=== PATIENT | male | born 1980 | race Caucasian/White ===

== ENCOUNTER 2018-04-02 10:50 | Emergency (ER) | payer SELFPAY ==
[2018-04-02] MEDS ORDERED: NA CHLORIDE 0.9% 1,000 ML ONE (11:35)
[2018-04-02 11:53] LABS: Absolute Lymphocytes (CBC) 2.7 K/uL (0.7-4.9); Absolute Monocytes 0.8 K/uL (0.1-1.3); Absolute Neutrophil 9.3 K/uL (1.8-8.0); Basophils % 0.4 % (0-1.3); Eosinophils % 0.3 % (0-4.4); Hematocrit 50.3 % (39.6-49.0); Lymphocytes % 20.8 % (15.3-44.8); MCH 32.2 pg (27.0-35.0); MCV 94.2 fL (80-100); MPV 9.9 fL (7.6-11.3); Monocytes % 6.1 % (3.3-12.3); RBC Red Blood Cell Count 5.34 M/uL (4.33-5.43)
[2018-04-02 11:56] LABS: Protime INR 1.05
[2018-04-02 12:42] LABS: ALT/SGPT 103 U/L (12-78); AST/SGOT 86 U/L (15-37); Albumin 4.2 g/dL (3.4-5.0); Alkaline Phosphatase 69 U/L (45-117); BUN Blood Urea Nitrogen 13 mg/dL (7-18); Bicarbonate 26 mmol/L (21-32); Bilirubin Direct 0.4 mg/dL (0-0.2); Bilirubin Total 1.1 mg/dL (0.2-1.0); Glucose Level 93 mg/dL (74-106); Potassium 3.8 mmol/L (3.5-5.1); Protein, Total 7.8 g/dL (6.4-8.2); Sodium Level 141 mmol/L (136-145)
[2018-04-02 12:47] LABS: Alcohol Serum/Plasma < 3 mg/dL (<3)
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
--- NOTE | 2018-04-02 14:14 | EDPHYS ---
Physician Documentation [facility] Name: Eliseo Green Age: 37 yrs Sex: Male : 1980 Arrival Date: 04/02/2018 Time: 10:55 Bed 18 Private MD: None, None ED Physician Noe Issa HPI: 04/02 14:04 This 37 yrs old Male presents to ER via Ambulatory with complaints of malachi Suicidal Ideation. 14:04 The patient presents to the emergency department with psychosis, has experienced visual malachi hallucinations, has delusions. Onset: The symptoms/episode began/occurred 2 week(s) ago. Past psychiatric history: Prior diagnosis: schizophrenia, Psychiatric medications include: none. Associated signs and symptoms: The patient has no apparent associated signs or symptoms. Severity of symptoms: At their worst the symptoms were mild moderate in the emergency department the symptoms are unchanged. The patient has experienced similar episodes in the past, several times. Historical: - Allergies: 11:23 No Known Allergies; ph - Home Meds: 11:23 None [Active]; ph - PMHx: 11:23 Schizophrenia; ph - PSHx: 11:23 None; ph - Immunization history:: Adult Immunizations unknown. - Social history:: Smoking status: Patient/guardian denies using tobacco, Patient uses alcohol, street drugs, Methamphetamine (Meth). - Ebola Screening: : No symptoms or risks identified at this time. ROS: 14:05 Constitutional: Negative for fever, chills, and weight loss, Eyes: Negative for injury, malachi pain, redness, and discharge, ENT: Negative for injury, pain, and discharge, Neck: Negative for injury, pain, and swelling, Cardiovascular: Negative for chest pain, palpitations, and edema, Respiratory: Negative for shortness of breath, cough, wheezing, and pleuritic chest pain, Abdomen/GI: Negative for abdominal pain, nausea, vomiting, diarrhea, and constipation, Back: Negative for injury and pain, : Negative for injury, bleeding, discharge, and swelling, MS/Extremity: Negative for injury and deformity, Skin: Negative for injury, rash, and discoloration, Neuro: Negative for headache, weakness, numbness, tingling, and seizure, Allergy/Immunology: Negative for hives, rash, and allergies, Endocrine: Negative for neck swelling, polydipsia, polyuria, polyphagia, and marked weight changes, Hematologic/Lymphatic: Negative for swollen nodes, abnormal bleeding, and unusual bruising. 14:05 Psych: Positive for depression, suicidal ideation. Exam: 14:05 Constitutional: This is a well developed, well nourished patient who is awake, alert, malachi and in no acute distress. Head/Face: Normocephalic, atraumatic. Eyes: Pupils equal round and reactive to light, extra-ocular motions intact. Lids and lashes normal. Conjunctiva and sclera are non-icteric and not injected. Cornea within normal limits. Periorbital areas with no swelling, redness, or edema. ENT: Nares patent. No nasal discharge, no septal abnormalities noted. Tympanic membranes are normal and external auditory canals are clear. Oropharynx with no redness, swelling, or masses, exudates, or evidence of obstruction, uvula midline. Mucous membranes moist. Neck: Trachea midline, no thyromegaly or masses palpated, and no cervical lymphadenopathy. Supple, full range of motion without nuchal rigidity, or vertebral point tenderness. No Meningismus. Chest/axilla: Normal chest wall appearance and motion. Nontender with no deformity. No lesions are appreciated. Cardiovascular: Regular rate and rhythm with a normal S1 and S2. No gallops, murmurs, or rubs. Normal PMI, no JVD. No pulse deficits. Respiratory: Lungs have equal breath sounds bilaterally, clear to auscultation and percussion. No rales, rhonchi or wheezes noted. No increased work of breathing, no retractions or nasal flaring. Abdomen/GI: Soft, non-tender, with normal bowel sounds. No distension or tympany. No guarding or rebound. No evidence of tenderness throughout. Back: No spinal tenderness. No costovertebral tenderness. Full range of motion. Skin: Warm, dry with normal turgor. Normal color with no rashes, no lesions, and no evidence of cellulitis. MS/ Extremity: Pulses equal, no cyanosis. Neurovascular intact. Full, normal range of motion. Neuro: Awake and alert, GCS 15, oriented to person, place, time, and situation. Cranial nerves II-XII grossly intact. Motor strength 5/5 in all extremities. Sensory grossly intact. Cerebellar exam normal. Normal gait. 14:05 Psych: Behavior/mood is depressed, Affect is flat, Oriented to person, place, time, Patient has no thoughts/intents to harm self or others. Judgement / Insight is normal. Delusions/hallucinations Vital Signs: 11:00 BP 136 / 99 LA Sitting (auto/reg); Pulse 110; Resp 19 S; Pulse Ox 96% on R/A; jp3 13:00 BP 134 / 87 LA Sitting (auto/reg); Pulse 66; Resp 19 S; Pulse Ox 100% on R/A; jp3 17:00 BP 125 / 93 LA Supine (auto/reg); Pulse 60; Resp 19 S; Pulse Ox 100% on R/A; jp3 20:37 BP 94 / 60; Pulse 86; Resp 16; Temp 97.9(O); Pulse Ox 98% on R/A; Pain 0/10; lp1 22:40 BP 115 / 88 LA Sitting (auto/reg); Pulse 105; Resp 19 S; Pulse Ox 96% on R/A; Pain 0/10;jp3 04/03 00:36 BP 111 / 74; Pulse 73; Resp 16; Pulse Ox 98% on R/A; lp1 04:47 BP 113 / 78; Pulse 76; Resp 17; Pulse Ox 96% on R/A; mw2 07:02 BP 110 / 68; Pulse 89; Resp 14; Temp 98.2; Pulse Ox 98% on R/A; mh5 08:28 BP 98 / 64; Pulse 70; Resp 15; Temp 98.0(O); Pulse Ox 97% on R/A; mh5 12:30 BP 106 / 78; Pulse 68; Resp 16; Temp 97.8(O); Pulse Ox 96% on R/A; mh5 16:21 BP 107 / 68; Pulse 70; Resp 16; Temp 97.8(O); Pulse Ox 97% on R/A; mh5 MDM: 04/02 11:07 Patient medically screened. [facility] 14:05 Data reviewed: vital signs, nurses notes, lab test result(s), EKG. [facility] 04/02 11:12 Order name: Acetaminophen; Complete Time: 14:03 [facility] 04/02 11:12 Order name: Basic Metabolic Panel; Complete Time: 14:03 [facility] 04/02 11:12 Order name: CBC with Diff; Complete Time: 14:03 [facility] 04/02 11:12 Order name: ETOH Level; Complete Time: 14:03 [facility] 04/02 11:12 Order name: Hepatic Function; Complete Time: 14:03 [facility] 04/02 11:12 Order name: PT-INR; Complete Time: 14:03 [facility] 04/02 11:12 Order name: Ptt, Activated; Complete Time: 14:03 [facility] 04/02 11:12 Order name: Salicylate; Complete Time: 14:03 [facility] 04/02 11:12 Order name: Urine Drug Screen; Complete Time: 15:56 [facility] 04/02 11:12 Order name: TSH; Complete Time: 14:03 [facility] 04/02 16:01 Order name: Urine Dipstick--Ancillary (enter results) bd 04/02 16:02 Order name: Urine Dipstick-Ancillary EDMS 04/02 11:12 Order name: EKG; Complete Time: 11:12 [facility] 04/02 11:12 Order name: EKG - Nurse/Tech; Complete Time: 11:39 [facility] 04/02 11:12 Order name: IV Saline Lock; Complete Time: 11:39 [facility] 04/02 11:12 Order name: Labs collected and sent; Complete Time: 11:39 [facility] 04/02 11:12 Order name: Urine Dipstick-Ancillary (obtain specimen); Complete Time: 11:40 [facility] 04/03 06:57 Order name: Diet Finger Food; Complete Time: 06:58 04/03 07:07 Order name: Diet Regular; Complete Time: 07:07 [facility] 04/03 10:17 Order name: Diet Regular; Complete Time: 10:17 [facility] 04/03 15:31 Order name: Diet Regular; Complete Time: 15:31 [facility] 04/03 17:24 Order name: Diet Regular; Complete Time: 17:24 [facility] Administered Medications: 11:39 Drug: NS 0.9% 1000 ml Route: IV; Rate: 1 bolus; Site: right antecubital; 04/03 07:00 Follow up: IV Status: Completed infusion; IV Intake: 1000ml ; completed prior to [facility] arrival 04/02 14:18 Drug: Ativan 1 mg Route: IVP; Site: right forearm; rb1 04/03 07:00 Follow up: Response: No adverse reaction 02:58 Drug: Valium 5 mg Route: PO; lp1 04:00 Follow up: Response: Marked relief of symptoms lp1 14:00 Drug: Ativan 2 mg Route: IM; Site: left deltoid; 15:00 Follow up: Response: No adverse reaction; Marked relief of symptoms 14:00 Drug: Geodon 20 mg Route: IM; Site: right gluteus; 15:00 Follow up: Response: No adverse reaction; Marked relief of symptoms Disposition: 04/02/18 14:13 Transfer ordered to Psych Facility. Diagnosis are Schizophrenia, Suicidal ideations. - Reason for transfer: Higher level of care. - Accepting physician is to psych. - Condition is Stable. - Problem is new. - Symptoms are unchanged. Signatures: Dispatcher [employer] EDJohanny Gomez RN RN Noe Issa MD MD cha Martinez, Eric em1 Gracy Ashford RN RN lp1 Ofe Jacobo RN RN Candy Echols RN RN [facility] Ely Maharaj RN RN Corrections: (The following items were deleted from the chart) 18:57 04/02 14:13 04/02/2018 14:13 Transfer ordered to Psych Facility. Diagnosis is em1 Schizophrenia; Suicidal ideations. Reason for transfer: Higher level of care. Accepting physician is to psych. Condition is Stable. Problem is new. Symptoms are unchanged. malachi
[2018-04-02] MEDS ORDERED: LORazepam 2 MG/ML VIAL ONE (14:19)
[2018-04-02 14:38] LABS: Barbiturates NEGATIVE (NEGATIVE); Benzodiazepines NEGATIVE (NEGATIVE); Cocaine NEGATIVE (NEGATIVE); METHAMPHETAM POSITIVE (NEGATIVE); Methadone NEGATIVE (NEGATIVE); Opiates NEGATIVE (NEGATIVE); Phencyclidine NEGATIVE (NEGATIVE); THC Cannibis NEGATIVE (NEGATIVE)
[2018-04-02 16:14] LABS: Urine Blood NEGATIVE (NEG); Urine Glucose NEGATIVE (NEG); Urine Protein 1+ (NEG); Urine Specific Gravity >1.030 (1.005-1.030)
[2018-04-03] MEDS ORDERED: DIAZEPAM 5 MG TABLET ONE (03:01)
--- NOTE | 2018-04-03 09:47 | EKG ---
Test Date: 2018-04-02 Test Time: 11:24:03 Film Producer: HB MEASUREMENT RESULTS: Intervals: Rate: 86 IA: 124 QRSD: 94 QT: 366 QTc: 437 [place]: P: 71 IA: 124 QRS: 41 T: 24 INTERPRETIVE STATEMENTS: Normal sinus rhythm with sinus arrhythmia Possible Left atrial enlargement Borderline ECG No previous ECG available for comparison Electronically Signed On 04-03-18 09:45:45 CDT by Warren Hernández
[2018-04-03] MEDS ORDERED: WATER FOR INJ,STERILE 10 ML ONE (14:04)
[2018-04-03] MEDS ORDERED: LORazepam 2 MG/ML VIAL ONE (14:04)
[2018-04-03] MEDS ORDERED: ZIPRASIDONE MESYLA 20 MG/VIAL IM ONE (14:04)
== END 2018-04-03 18:57 ==
LOC: ER 10:50
DX: R45.851 Suicidal ideations (principal)
CPT/HCPCS: 36415; 80048; 80076; 80307; 80320; 80329; 81003; 84443; 85025; 85610; 85730; 93005; 96361; 96372; 96374; 99285; J3486; J7030

== ENCOUNTER 2019-04-09 17:08 | Emergency (ER) | payer SELFPAY ==
[2019-04-09 17:50] LABS: Absolute Lymphocytes (CBC) 2.2 K/uL (0.7-4.9); Basophils % 0.6 % (0-1.3); Hematocrit 40.7 % (39.6-49.0); Lymphocytes % 33.4 % (15.3-44.8); MPV 9.1 fL (7.6-11.3); RBC Red Blood Cell Count 4.37 M/uL (4.33-5.43)
[2019-04-09 18:22] LABS: ALT/SGPT 16 U/L (12-78); AST/SGOT 10 U/L (15-37); Albumin 3.7 g/dL (3.4-5.0); Alkaline Phosphatase 51 U/L (45-117); BUN Blood Urea Nitrogen 17 mg/dL (7-18); Bicarbonate 29 mmol/L (21-32); Bilirubin Direct 0.1 mg/dL (0-0.2); Bilirubin Total 0.2 mg/dL (0.2-1.0); Glucose Level 65 mg/dL (74-106); Potassium 3.9 mmol/L (3.5-5.1); Protein, Total 7.2 g/dL (6.4-8.2); Sodium Level 143 mmol/L (136-145)
[2019-04-09 20:57] LABS: Barbiturates NEGATIVE (NEGATIVE); Benzodiazepines NEGATIVE (NEGATIVE); Cocaine NEGATIVE (NEGATIVE); METHAMPHETAM NEGATIVE (NEGATIVE); Methadone NEGATIVE (NEGATIVE); Opiates NEGATIVE (NEGATIVE); Phencyclidine NEGATIVE (NEGATIVE); THC Cannibis NEGATIVE (NEGATIVE)
[2019-04-09 22:07] LABS: Urine Blood NEGATIVE (NEG); Urine Glucose NEGATIVE (NEG); Urine Protein NEGATIVE (NEG); Urine Specific Gravity 1.015 (1.005-1.030); Urine pH 5.5 (5.0-7.0)
--- NOTE | 2019-04-10 17:37 | EKG ---
Test Date: 2019-04-09 Test Time: 17:45:32 Seal Skinner: TRESSA MEASUREMENT RESULTS: Intervals: Rate: 72 MA: 142 QRSD: 94 QT: 378 QTc: 413 [place]: P: 77 MA: 142 QRS: 83 T: 48 INTERPRETIVE STATEMENTS: Normal sinus rhythm Normal ECG Compared to ECG 04/02/2018 11:24:03 Sinus arrhythmia no longer present Electronically Signed On 04-10-19 17:35:05 CDT by Jamar Rios
[2019-04-10] MEDS ORDERED: ACETAMINOPHEN 500 MG TAB ONE (18:44)
[2019-04-11] MEDS ORDERED: DIAZEPAM 5 MG TABLET ONE (09:52)
--- NOTE | 2019-04-11 12:33 | EDPHYS ---
Physician Documentation [facility] Name: Eliseo Green Age: 38 yrs Sex: Male : 1980 Arrival Date: 04/09/2019 Time: 17:12 Bed 17 Private MD: ED Physician Titus Polanco HPI: 04/09 17:18 This 38 yrs old Male presents to ER via EMS with complaints of Psych Problem. ps1 17:18 patient BIBEMS for suicidal thoughts. Patient is on suboxone for previous heroin abuse. ps1 Out of suboxone. Hx of schizophrenia. Not controlled on antipsychotics. Previous admission last year. Now harboring suicidal, paranoia, and thoughts of conspiracy. Believes that people are using "numerics and anagrams" with the number "99" to represent "99 years or life in shelter" to communicate a community based attack to "gaslight" the patient to appear crazy to pay for previous crimes that they believe he did not pay a significant enough penalty. . Historical: - Allergies: 17:12 No Known Allergies; la1 - PMHx: 17:12 Schizophrenia; la1 - Immunization history:: Adult Immunizations up to date. - Social history:: Smoking status: unknown. - Ebola Screening: : No symptoms or risks identified at this time. ROS: 17:18 Constitutional: Negative for fever, chills, and weight loss, Eyes: Negative for injury, ps1 pain, redness, and discharge, Cardiovascular: Negative for chest pain, palpitations, and edema, Respiratory: Negative for shortness of breath, cough, wheezing, and pleuritic chest pain, Abdomen/GI: Negative for abdominal pain, nausea, vomiting, diarrhea, and constipation, MS/Extremity: Negative for injury and deformity, Skin: Negative for injury, rash, and discoloration. 17:18 Psych: Positive for suicidal ideation, suicidal plan. Exam: 17:18 Constitutional: This is a well developed, well nourished patient who is awake, alert, ps1 and in no acute distress. Head/Face: Normocephalic, atraumatic. Eyes: Pupils equal round and reactive to light, extra-ocular motions intact. Lids and lashes normal. Conjunctiva and sclera are non-icteric and not injected. Chest/axilla: Normal chest wall appearance and motion. Nontender with no deformity. No lesions are appreciated. Cardiovascular: Regular rate and rhythm. No gallops, murmurs, or rubs. Normal PMI, no JVD. No pulse deficits. Respiratory: Lungs have equal breath sounds bilaterally, clear to auscultation and percussion. No rales, rhonchi or wheezes noted. No increased work of breathing, no retractions or nasal flaring. Abdomen/GI: Soft, non-tender, with normal bowel sounds. No distension or tympany. No guarding or rebound. No evidence of tenderness throughout. Skin: Warm, dry with normal turgor. Normal color with no rashes, no lesions, and no evidence of cellulitis. MS/ Extremity: Pulses equal, no cyanosis. Neurovascular intact. Full, normal range of motion. Neuro: Awake and alert, GCS 15, oriented to person, place, time, and situation. Cranial nerves II-XII grossly intact. Sensory grossly intact. 17:18 Psych: Behavior/mood is pleasant, cooperative, Affect is calm, Oriented to person, place, time, Patient having thoughts of suicide. Plan for suicide is to get a black powder gun that does not require background check to shoot himself Vital Signs: 17:13 BP 109 / 73; Pulse 77; Resp 16; Temp 97.1(TE); Pulse Ox 98% on R/A; la1 18:04 BP 106 / 71; Pulse 80; Resp 16; Pulse Ox 100% on R/A; jp3 20:04 BP 93 / 57; Pulse 73; Resp 16; Temp 97.0; dg1 04/10 00:00 BP 106 / 72; Pulse 73; Resp 17; Temp 97.0(O); dg1 02:00 BP 97 / 63; Pulse 50; Resp 18; Temp 98.9(O); Pulse Ox 99% on R/A; Pain 0/10; mg2 18:13 BP 97 / 57; Pulse 54; Resp 18; Temp 99; Pulse Ox 98% on R/A; Pain 0/10; mg2 22:00 BP 99 / 58; Pulse 55; Resp 18; Temp 97.0; Pulse Ox 98% on R/A; Pain 0/10; aa8 04/11 02:00 BP 96 / 60; Pulse 52; Resp 18; Temp 96.9; Pulse Ox 98% on R/A; Pain 0/10; aa8 09:30 BP 97 / 65; Pulse 46; Resp 18; Temp 97.8; Pulse Ox 98% ; to 12:19 BP 97 / 56; Pulse 60; Resp 18; Temp 98.9; Pulse Ox 98% ; to MDM: 04/09 17:29 Patient medically screened. ps1 04/11 08:59 ED course: Pt still pending psychiatric transfer, calm and cooperative. States is going rn to shoot himself with gun.. 09:54 ED course: Pt now states not suicidal, wants to go home. Waiting on [facility] rn reevaluation.. 12:26 Differential diagnosis: depression. Data reviewed: vital signs, nurses notes, lab test rn result(s), and as a result, I will discharge patient. 12:26 Counseling: I had a detailed discussion with the patient and/or guardian regarding: the rn historical points, exam findings, and any diagnostic results supporting the discharge/admit diagnosis, lab results, the need for outpatient follow up, to return to the emergency department if symptoms worsen or persist or if there are any questions or concerns that arise at home. ED course: Evaluated by [facility], deemed safe for dc home. Patient has repeatedly denied suicidal ideations for last few encounters, has family near, and feels better after staying and talking with us. . 12:28 ED course: Pt given information and setup out pt appt by [facility]. . rn 04/09 17:18 Order name: Acetaminophen; Complete [facility]: 18[facility] 04/[facility] 17:18 Order name: Basic Metabolic Panel; Complete Time: 18:[facility] 04/09 17:18 Order name: CBC with Diff; Complete Time: 17:58 [facility] 04/09 17:18 Order name: ETOH Level; Complete Time: 18:50 [facility] 04/09 17:18 Order name: Hepatic Function; Complete Time: 18:50 [facility] 04/09 17:18 Order name: PT-INR; Complete Time: 17:58 [facility] 04/09 17:18 Order name: Ptt, Activated; Complete Time: 17:58 [facility] 04/09 17:18 Order name: Salicylate; Complete Time: 18:50 [facility] 04/09 17:18 Order name: Urine Drug Screen; Complete Time: 21:16 [facility] 04/09 17:18 Order name: EKG; Complete Time: 17:19 ps1 04/09 21:58 Order name: Urine Dipstick--Ancillary (enter results); Complete Time: 10:23 ag4 04/10 11:36 Order name: Diet Finger Food; Complete Time: 11:39 sg 04/09 17:18 Order name: EKG - Nurse/Tech; Complete Time: 18:03 ps1 04/09 17:18 Order name: IV Saline Lock; Complete Time: 18:03 ps1 04/09 17:18 Order name: Labs collected and sent; Complete Time: 18:03 ps1 04/09 17:18 Order name: Urine Dipstick-Ancillary (obtain specimen); Complete Time: 20:45 ps1 04/11 08:04 Order name: Diet Regular; Complete Time: 08:05 dh3 04/11 11:07 Order name: Diet Regular; Complete Time: 11:08 dh3 Administered Medications: 04/10 18:44 Drug: Tylenol 1000 mg Route: PO; mg2 19:21 Follow up: Response: No adverse reaction; Pain is decreased cc3 04/11 09:50 Drug: Valium 5 mg Route: PO; jl7 11:19 Follow up: Response: No adverse reaction; Marked relief of symptoms jl7 Disposition: 04/11/19 12:27 Discharged to Home. Impression: Depression. - Condition is Stable. - Discharge Instructions: Suicidal Feelings: How to Help Yourself. - Prescriptions for Valium 2 mg Oral Tablet - take 1 tablet by ORAL route once daily As needed; 5 tablet. - Medication Reconciliation Form, Thank You Letter, Antibiotic Education, Prescription Opioid Use, SBAR form form. - Follow up: Private Physician; When: As needed; Reason: Recheck today's complaints, Re-evaluation by your physician. - Problem is new. - Symptoms have improved. Signatures: Dispatcher [employer] EDEmilio Ricks MD MD rn Attema, Lee RN RN [email or web address] Shasha Guan RN RN jl7 Titus Polanco MD MD ps1 [place], Michele RN RN mg2 Hansa Cerda cc3 Corrections: (The following items were deleted from the chart) 04/09 17:24 17:18 patient BIBEMS for suicidal thoughts. Patient is on suboxone for previous heroin ps1 abuse. Out of suboxone. Hx of schizophrenia. Not controlled on antipsychotics. Previous admission last year. Now harboring suicidal, paranoia, and thoughts of conspiracy. Believes that people are using "numerics and anagrams" with the number "99" to represent "99 years or life in shelter" to communicate a community based attack to "gaslamp" the patient to appear crazy to pay for previous crimes that they believe he did not pay a significant enough penalty. . ps1 04/11 13:53 12:27 04/11/2019 12:27 Discharged to Home. Impression: Depression. Condition is Stable. jl7 Forms are SBAR form, Medication Reconciliation Form, Thank You Letter, Antibiotic Education, Prescription Opioid Use. Follow up: Private Physician; When: As needed; Reason: Recheck today's complaints, Re-evaluation by your physician. Problem is new. Symptoms have improved. rn
--- NOTE | 2019-04-11 12:33 | ER ---
Nurse's Notes [facility] Name: Eliseo Green Age: 38 yrs Sex: Male : 1980 Arrival Date: 04/09/2019 Time: 17:12 Bed 17 Private MD: Diagnosis: Depression Presentation: 04/09 17:14 Presenting complaint: Patient states: I was at the [employer] and the lady asked me la1 if I have any suicidal thoughts, I said yes, I know you can go buy a gun real easy at the store. People in the community are conspiring against me too. Transition of care: patient was not received from another setting of care. Onset of symptoms was April 09, 2019. Risk Assessment: Do you want to hurt yourself or someone else? Patient reports no desire to harm self or others. Initial Sepsis Screen: Does the patient meet any 2 criteria? No. Patient's initial sepsis screen is negative. Does the patient have a suspected source of infection? No. Patient's initial sepsis screen is negative. Care prior to arrival: None. 17:14 Method Of Arrival: EMS: [facility] la1 17:14 Acuity: GURINDER 2 la1 Historical: - Allergies: 17:12 No Known Allergies; la1 - PMHx: 17:12 Schizophrenia; la1 - Immunization history:: Adult Immunizations up to date. - Social history:: Smoking status: unknown. - Ebola Screening: : No symptoms or risks identified at this time. Screenin:40 Abuse screen: Denies threats or abuse. Nutritional screening: No deficits noted. la1 Tuberculosis screening: No symptoms or risk factors identified. Fall Risk None identified. Assessment: 17:39 General: Appears in no apparent distress. Behavior is calm, cooperative. Pain: Denies la1 pain. Neuro: Level of Consciousness is awake, alert, obeys commands, Oriented to person, place, time, situation. Cardiovascular: Capillary refill < 3 seconds Patient's skin is warm and dry. Respiratory: Airway is patent Respiratory effort is even, unlabored, Respiratory pattern is regular, symmetrical, Breath sounds are clear bilaterally. GI: Abdomen is flat, non-distended. : No signs and/or symptoms were reported regarding the genitourinary system. EENT: No signs and/or symptoms were reported regarding the EENT system. Derm: No signs and/or symptoms reported regarding the dermatologic system. 17:53 Reassessment: pt states that other people in the community are conspiring against him la1 to punish him for things that he has done in the past. 18:54 Reassessment: Patient appears in no apparent distress at this time. No changes from la1 previously documented assessment. Patient and/or family updated on plan of care and expected duration. Pain level reassessed. 19:13 Reassessment: Patient appears in no apparent distress at this time. Patient and/or cc3 family updated on plan of care and expected duration. Pain level reassessed. Patient is alert, oriented x 3, equal unlabored respirations, skin warm/dry/pink. Received this male patient from morning shift BARB Wong as a case of suicidal ideation. With IV cannula gauge 22 at the right ACV saline locked. patient resting on bed with eyes closed. Sitter present. Patient denies pain at this time. General: Appears in no apparent distress. comfortable, Behavior is calm, cooperative. Pain: Denies pain. Neuro: Level of Consciousness is awake, alert, obeys commands, Oriented to person, place, time, situation, Appropriate for age. Cardiovascular: Denies chest pain, Capillary refill < 3 seconds Patient's skin is warm and dry. Respiratory: Airway is patent Respiratory effort is even, unlabored, Respiratory pattern is regular, symmetrical, Breath sounds are clear bilaterally. GI: Abdomen is round non-distended. : No signs and/or symptoms were reported regarding the genitourinary system. EENT: No signs and/or symptoms were reported regarding the EENT system. Derm: Skin is intact, is healthy with good turgor, Skin is pink, warm \\T\\ dry. normal. Musculoskeletal: Circulation, motion, and sensation intact. Range of motion: intact in all extremities. 20:12 Reassessment: Patient appears in no apparent distress at this time. Patient and/or cc3 family updated on plan of care and expected duration. Pain level reassessed. Patient is alert, oriented x 3, equal unlabored respirations, skin warm/dry/pink. Sitter present Patient denies pain at this time. 21:17 Reassessment: Patient appears in no apparent distress at this time. Patient and/or cc3 family updated on plan of care and expected duration. Pain level reassessed. Patient is alert, oriented x 3, equal unlabored respirations, skin warm/dry/pink. Sitter present Patient denies pain at this time. 22:25 Reassessment: Patient appears in no apparent distress at this time. Patient and/or cc3 family updated on plan of care and expected duration. Pain level reassessed. Patient is alert, oriented x 3, equal unlabored respirations, skin warm/dry/pink. sitter present Patient denies pain at this time. 23:16 Reassessment: Patient appears in no apparent distress at this time. Patient and/or cc3 family updated on plan of care and expected duration. Pain level reassessed. Patient is alert, oriented x 3, equal unlabored respirations, skin warm/dry/pink. sitter present Patient denies pain at this time. 04/10 00:12 Reassessment: Patient appears in no apparent distress at this time. Patient and/or cc3 family updated on plan of care and expected duration. Pain level reassessed. Patient is alert, oriented x 3, equal unlabored respirations, skin warm/dry/pink. sitter present Patient denies pain at this time. 01:18 Reassessment: Patient appears in no apparent distress at this time. Patient and/or cc3 family updated on plan of care and expected duration. Pain level reassessed. Patient is alert, oriented x 3, equal unlabored respirations, skin warm/dry/pink. sitter present Patient denies pain at this time. 02:49 Reassessment: Patient appears in no apparent distress at this time. patient comfortably cc3 sleeping, kept undisturbed. sitter present. 03:18 Reassessment: Patient appears in no apparent distress at this time. Patient sleeping, cc3 kept undisturbed. sitter present. 04:30 Reassessment: Patient appears in no apparent distress at this time. patient sleeping, cc3 sitter present. 05:25 Reassessment: Patient appears in no apparent distress at this time. patient sleeping, cc3 sitter present. 06:21 Reassessment: Patient appears in no apparent distress at this time. patient comfortably cc3 sleeping, kept undisturbed. sitter present. 07:05 Reassessment: Report received from Hansa DAY. Pt resting with positive signs of hb sleep. NAD. Respirations even and unlabored, skin is pink and dry. Sitter remains at bedside. 15:08 Reassessment: Patient appears in no apparent distress at this time. Patient and/or mg2 family updated on plan of care and expected duration. Pain level reassessed. Patient is alert, oriented x 3, equal unlabored respirations, skin warm/dry/pink. 18:14 Reassessment: Patient appears in no apparent distress at this time. No changes from mg2 previously documented assessment. Patient and/or family updated on plan of care and expected duration. Pain level reassessed. Patient is alert, oriented x 3, equal unlabored respirations, skin warm/dry/pink. 19:16 Reassessment: Patient appears in no apparent distress at this time. Patient and/or cc3 family updated on plan of care and expected duration. Pain level reassessed. Patient is alert, oriented x 3, equal unlabored respirations, skin warm/dry/pink. Received this male patient from morning shift RN Elliot, not yet seen by [facility] today. No IV cannula in situ. sitter present. Patient denies pain at this time. General: Appears in no apparent distress. comfortable, Behavior is calm, cooperative, appropriate for age. Pain: Denies pain. Neuro: Level of Consciousness is awake, alert, obeys commands, Oriented to person, place, time, situation, Appropriate for age. Cardiovascular: Denies chest pain, Capillary refill < 3 seconds Patient's skin is warm and dry. Respiratory: Airway is patent Respiratory effort is even, unlabored, Respiratory pattern is regular, symmetrical. GI: Abdomen is round non-distended. : No signs and/or symptoms were reported regarding the genitourinary system. EENT: No signs and/or symptoms were reported regarding the EENT system. Derm: Skin is intact, is healthy with good turgor, Skin is pink, warm \\T\\ dry. normal. Musculoskeletal: Circulation, motion, and sensation intact. Range of motion: intact in all extremities. 19:21 Reassessment: [facility] sales representative meats came and assessing the patient at bedside. cc3 19:45 Reassessment: [facility] sales representative meats came out of the patient's room. cc3 20:12 Reassessment: Patient appears in no apparent distress at this time. Patient and/or cc3 family updated on plan of care and expected duration. Pain level reassessed. Patient is alert, oriented x 3, equal unlabored respirations, skin warm/dry/pink. sitter present Patient denies pain at this time. 21:35 Reassessment: Patient appears in no apparent distress at this time. Patient and/or cc3 family updated on plan of care and expected duration. Pain level reassessed. Patient is alert, oriented x 3, equal unlabored respirations, skin warm/dry/pink. sitter present Patient denies pain at this time. 22:25 Reassessment: Patient appears in no apparent distress at this time. Patient and/or cc3 family updated on plan of care and expected duration. Pain level reassessed. Patient is alert, oriented x 3, equal unlabored respirations, skin warm/dry/pink. sitter present Patient denies pain at this time. 23:23 Reassessment: Patient appears in no apparent distress at this time. Patient and/or cc3 family updated on plan of care and expected duration. Pain level reassessed. Patient is alert, oriented x 3, equal unlabored respirations, skin warm/dry/pink. sitter present Patient denies pain at this time. 04/11 00:43 Reassessment: Patient appears in no apparent distress at this time. Patient and/or cc3 family updated on plan of care and expected duration. Pain level reassessed. Patient is alert, oriented x 3, equal unlabored respirations, skin warm/dry/pink. sitter present Patient denies pain at this time. 01:18 Reassessment: Patient appears in no apparent distress at this time. Patient comfortably cc3 sleeping, kept undisturbed. Sitter present. 02:25 Reassessment: Patient appears in no apparent distress at this time. patient sleeping, cc3 kept undisturbed. sitter present. 03:05 Reassessment: Patient appears in no apparent distress at this time. patient sleeping, cc3 kept undisturbed. sitter present. 04:15 Reassessment: Patient appears in no apparent distress at this time. Patient and/or cc3 family updated on plan of care and expected duration. Pain level reassessed. Patient is alert, oriented x 3, equal unlabored respirations, skin warm/dry/pink. Patient asked for snacks. sitter present. Patient denies pain at this time. 06:30 Reassessment: Patient appears in no apparent distress at this time. Patient and/or cc3 family updated on plan of care and expected duration. Pain level reassessed. Patient is alert, oriented x 3, equal unlabored respirations, skin warm/dry/pink. sitter present Patient denies pain at this time. 07:00 Reassessment: Patient appears in no apparent distress at this time. pt laying in bed jl7 with eyes closed, respirations even and unlabored, no signs of distress noted at this time. 08:00 Reassessment: Patient appears in no apparent distress at this time. No changes from [facility] previously documented assessment. 09:01 Reassessment: Patient appears in no apparent distress at this time. No changes from [facility] previously documented assessment. 09:30 Reassessment: Patient appears in no apparent distress at this time. Pt sitting up in [facility] bed, denies pain, denies SI, denies HI. Pt reports "I feel like I'm having withdrawals from not taking my Suboxone for 3 days now." ERD notified, see MAR for orders. 11:16 Reassessment: Pt laying in bed with eyes closed, respirations even and unlabored, no [facility] signs of distress noted at this time. 12:10 Reassessment: [facility] at bedside. [facility] 13:50 Reassessment: Pt provided with bus pass. [facility] Psych: 04/09 17:13 Subjective: Patient's mood is irritable, Delusions are denied, Hallucinations are la1 suspected, Having thoughts of suicide. Objective: Patient is cooperative, challenging, Speech is normal. Interventions: Removed personal items and placed in bag. Suicide Risk Assessment: Sad Person Scale: Sex of patient: Male: Score 1 point. Age of patient: Score 0 point if patient falls outside of specified age parameters. Depression: Score 1 point if signs of depression are present. Previous Attempt: Substance Abuse: Score 1 point if patient abuses alcohol or drugs. Rational Thinking: Score 1 point if patient is lacking rational thinking. Social Support: Score 1 point if social support is lacking and/or unavailable. Organized Plan: Score 0 if patient did not have an organized plan in place. Relationship: Score 1 point if patient is , , , or for a single male Chronic Sickness: Score 0 point if patient does not have a chronic illness, debilitating, or severe disorder. TOTAL POINTS: If total points are 5-6, proposed clinical action is to strongly consider hospitalization, depending upon confidence in the follow-up arrangement. Implement suicide precautions. Safety Checks: Personal items have been removed. Pt has been placed in a hallway bed/chair. suboxone. Commitment: Patient will be a voluntary commitment. Vital Signs: 17:13 BP 109 / 73; Pulse 77; Resp 16; Temp 97.1(TE); Pulse Ox 98% on R/A; la1 18:04 BP 106 / 71; Pulse 80; Resp 16; Pulse Ox 100% on R/A; jp3 20:04 BP 93 / 57; Pulse 73; Resp 16; Temp 97.0; dg1 04/10 00:00 BP 106 / 72; Pulse 73; Resp 17; Temp 97.0(O); dg1 02:00 BP 97 / 63; Pulse 50; Resp 18; Temp 98.9(O); Pulse Ox 99% on R/A; Pain 0/10; mg2 18:13 BP 97 / 57; Pulse 54; Resp 18; Temp 99; Pulse Ox 98% on R/A; Pain 0/10; mg2 22:00 BP 99 / 58; Pulse 55; Resp 18; Temp 97.0; Pulse Ox 98% on R/A; Pain 0/10; aa8 04 02:00 BP 96 / 60; Pulse 52; Resp 18; Temp 96.9; Pulse Ox 98% on R/A; Pain 0/10; aa8 09:30 BP 97 / 65; Pulse 46; Resp 18; Temp 97.8; Pulse Ox 98% ; to 12:19 BP 97 / 56; Pulse 60; Resp 18; Temp 98.9; Pulse Ox 98% ; to ED Course: 04/09 17:12 Patient arrived in ED. la1 17:15 Triage completed. la1 17:16 Titus Polanco MD is Attending Physician. la1 17:16 Arm band placed on right wrist. la1 17:20 Patient has correct armband on for positive identification. jp3 17:20 Warm blanket given. Verbal reassurance given. Sitter at bedside. jp3 17:20 Safety checks: Items removed: yes. Door open/sign placed on door: yes. Family/friend jp3 present: no. Sitter present: Yes. Placed in gown. Bed in low position. Valuables inventory done. Locked in safe. See valuables checklist. 17:30 Safety checks: Items removed: yes. Door open/sign placed on door: yes. Family/friend jp3 present: no. Sitter present: Yes. 17:35 Initial lab(s) drawn, by me, sent to lab. EKG done. Inserted saline lock: 22 gauge in jp3 right forearm, using aseptic technique. EJ, using aseptic technique. Blood collected. Patient maintains SpO2 saturation greater than 95% on room air. 17:39 Marvin Lama RN is Primary Nurse. la1 17:45 Safety checks: Items removed: yes. Door open/sign placed on door: yes. Family/friend jp3 present: no. Sitter present: Yes. Safety checks:. 17:53 Safety Checks: Personal items have been removed. The door is open or patient has been la1 placed in a hallway bed/chair. A family member and/or friend is present and encouraged to stay. Sitter present at this time. 17:53 No provider procedures requiring assistance completed. la1 18:00 Safety checks: Items removed: yes. Door open/sign placed on door: yes. Family/friend jp3 present: no. Sitter present: Yes. 18:15 Safety checks: Items removed: yes. Door open/sign placed on door: yes. Family/friend jp3 present: no. Sitter present: Yes. 18:30 Safety checks: Items removed: yes. Door open/sign placed on door: yes. Family/friend jp3 present: no. Sitter present: Yes. 18:45 Safety checks: Items removed: yes. Door open/sign placed on door: yes. Family/friend jp3 present: no. Sitter present: Yes. 19:00 Safety checks: Items removed: yes. Door open/sign placed on door: yes. Family/friend jp3 present: no. Sitter present: Yes. 19:25 Safety checks: Items removed: no. Reason for not removing items: Door open/sign placed dg1 on door: yes. Family/friend present: no. Sitter present: Yes. 20:08 Safety checks: Items removed: yes. Door open/sign placed on door: yes. Family/friend dg1 present: no. Sitter present: Yes. 20:15 Safety checks: Items removed: yes. Door open/sign placed on door: yes. Family/friend dg1 present: no. Sitter present: Yes. 20:30 Safety checks: Items removed: yes. Door open/sign placed on door: yes. Family/friend dg1 present: no. Sitter present: Yes. 20:45 Safety checks: Items removed: yes. Door open/sign placed on door: yes. Family/friend dg1 present: no. Sitter present: Yes. 21:00 Safety checks: Items removed: yes. Door open/sign placed on door: yes. Family/friend dg1 present: no. Sitter present: Yes. 21:15 Safety checks: Items removed: yes. Door open/sign placed on door: yes. Family/friend dg1 present: no. Sitter present: Yes. 21:30 Safety checks: Items removed: yes. Door open/sign placed on door: yes. Family/friend dg1 present: no. Sitter present: Yes. 21:45 Safety checks: Items removed: yes. Door open/sign placed on door: yes. Family/friend dg1 present: no. Sitter present: Yes. 22:00 Safety checks: Items removed: yes. Door open/sign placed on door: yes. Family/friend dg1 present: no. Sitter present: Yes. 22:15 Safety checks: Items removed: yes. Door open/sign placed on door: yes. Family/friend dg1 present: no. Sitter present: Yes. 22:30 Safety checks: Items removed: yes. Door open/sign placed on door: yes. Family/friend dg1 present: no. Sitter present: Yes. 22:45 Safety checks: Items removed: yes. Door open/sign placed on door: yes. Family/friend dg1 present: no. Sitter present: Yes. 04/10 00:00 Safety checks: Items removed: yes. Door open/sign placed on door: no. Family/friend dg1 present: no. Sitter present: Yes. 00:15 Safety checks: Items removed: yes. Door open/sign placed on door: no. Family/friend dg1 present: no. Sitter present: Yes. 00:30 Safety checks: Items removed: yes. Door open/sign placed on door: no. Family/friend dg1 present: yes. no. Sitter present: Yes. 00:45 Safety checks: Items removed: yes. Door open/sign placed on door: no. Family/friend dg1 present: no. Sitter present: Yes. 01:00 Safety checks: Items removed: yes. Door open/sign placed on door: no. Family/friend dg1 present: no. Sitter present: Yes. 01:15 Safety checks: Items removed: yes. Door open/sign placed on door: no. Family/friend dg1 present: no. Sitter present: Yes. 01:30 Safety checks: Items removed: yes. Door open/sign placed on door: no. Family/friend dg1 present: no. Sitter present: Yes. 01:45 Safety checks: Items removed: yes. Door open/sign placed on door: no. Family/friend dg1 present: yes. Sitter present: Yes. 02:00 Safety checks: Items removed: yes. Door open/sign placed on door: no. Family/friend dg1 present: no. Sitter present:. 02:15 Safety checks: Items removed: yes. Door open/sign placed on door: no. Family/friend dg1 present: no. Sitter present: Yes. 02:30 Safety checks: Items removed: yes. Door open/sign placed on door: no. Family/friend dg1 present: no. Sitter present: Yes. 02:45 Safety checks: Items removed: yes. Door open/sign placed on door: no. Family/friend dg1 present: no. Sitter present: Yes. 03:00 Safety checks: Items removed: yes. Door open/sign placed on door: no. Family/friend dg1 present: no. Sitter present: Yes. 03:15 Safety checks: Items removed: yes. Door open/sign placed on door: no. Family/friend dg1 present: no. Sitter present: Yes. 03:30 Safety checks: Items removed: yes. Door open/sign placed on door: no. Family/friend dg1 present: no. Sitter present: Yes. 03:45 Safety checks: Items removed: yes. Door open/sign placed on door: no. Family/friend dg1 present: no. Sitter present: Yes. 04:00 Safety checks: Items removed: yes. Door open/sign placed on door: no. Family/friend dg1 present: no. Sitter present: Yes. 04:15 Safety checks: Items removed: yes. Door open/sign placed on door: no. Family/friend dg1 present: no. Sitter present: Yes. 04:27 Safety checks: Items removed: yes. Door open/sign placed on door: no. Family/friend dg1 present: no. Sitter present: Yes. 04:45 Safety checks: Items removed: yes. Door open/sign placed on door: no. Family/friend dg1 present: no. Sitter present: Yes. 05:00 Safety checks: Items removed: yes. Door open/sign placed on door: no. Family/friend dg1 present: no. Sitter present: Yes. 05:15 Safety checks: Items removed: yes. Door open/sign placed on door: no. Family/friend dg1 present: no. Sitter present: Yes. 05:30 Safety checks: Items removed: yes. Door open/sign placed on door: no. Family/friend dg1 present: no. Sitter present: Yes. 05:45 Safety checks: Items removed: yes. Door open/sign placed on door: no. Family/friend dg1 present: no. Sitter present: Yes. 06:00 Safety checks: Items removed: yes. Door open/sign placed on door: no. Family/friend dg1 present: no. Sitter present: Yes. 06:11 Safety checks: Items removed: yes. Door open/sign placed on door: no. Family/friend dg1 present: no. Sitter present: Yes. 06:30 Safety checks: Items removed: yes. Door open/sign placed on door: no. Family/friend es1 present: no. Sitter present: Yes. 06:45 Safety checks: Items removed: yes. Door open/sign placed on door: no. Family/friend es1 present: no. Sitter present: Yes. 07:00 Safety checks: Items removed: yes. Door open/sign placed on door: no. Family/friend es1 present: no. Sitter present: Yes. 07:00 Report given to BARB Cerda ccLexi 07:15 Safety checks: Items removed: yes. Door open/sign placed on door: no. Family/friend es1 present: no. Sitter present: Yes. 07:30 Safety checks: Items removed: yes. Door open/sign placed on door: no. Family/friend es1 present: no. Sitter present: Yes. 07:45 Safety checks: Items removed: yes. Door open/sign placed on door: no. Family/friend es1 present: no. Sitter present: Yes. 08:00 Safety checks: Items removed: yes. Door open/sign placed on door: no. Family/friend es1 present: no. Sitter present: Yes. 08:15 Safety checks: Items removed: yes. Door open/sign placed on door: no. Family/friend es1 present: no. Sitter present: Yes. 08:30 Safety checks: Items removed: yes. Door open/sign placed on door: no. Family/friend es1 present: no. Sitter present: Yes. 08:37 Primary Nurse role handed off by Marvin Lama RN 08:37 Joss Frye RN is Primary Nurse. 08:45 Safety checks: Items removed: yes. Door open/sign placed on door: no. Family/friend es1 present: no. Sitter present: Yes. 09:00 Safety checks: Items removed: yes. Door open/sign placed on door: no. Family/friend es1 present: no. Sitter present: Yes. 09:15 Safety checks: Items removed: yes. Door open/sign placed on door: no. Family/friend es1 present: no. Sitter present: Yes. 09:30 Safety checks: Items removed: yes. Door open/sign placed on door: yes. Family/friend es1 present: no. Sitter present: Yes. 09:45 Safety checks: Items removed: yes. Door open/sign placed on door: yes. Family/friend es1 present: no. Sitter present: Yes. 10:00 Safety checks: Items removed: yes. Door open/sign placed on door: yes. Family/friend es1 present: no. Sitter present: Yes. 10:15 Safety checks: Items removed: yes. Door open/sign placed on door: yes. Family/friend es1 present: no. Sitter present: Yes. 10:30 Safety checks: Items removed: yes. Door open/sign placed on door: yes. Family/friend es1 present: no. Sitter present: Yes. 10:45 Safety checks: Items removed: yes. Door open/sign placed on door: yes. Family/friend es1 present: no. Sitter present: Yes. 11:00 Safety checks: Items removed: yes. Door open/sign placed on door: yes. Family/friend es1 present: no. Sitter present: Yes. 11:15 Safety checks: Items removed: yes. Door open/sign placed on door: yes. Family/friend es1 present: no. Sitter present: Yes. 11:30 Safety checks: Items removed: yes. Door open/sign placed on door: yes. Family/friend es1 present: no. Sitter present: Yes. 11:45 Safety checks: Items removed: yes. Door open/sign placed on door: yes. Family/friend es1 present: no. Sitter present: Yes. 12:00 Safety checks: Items removed: yes. Door open/sign placed on door: yes. Family/friend es1 present: no. Sitter present: Yes. 12:15 Safety checks: Items removed: yes. Door open/sign placed on door: yes. Family/friend es1 present: no. Sitter present: Yes. 12:30 Safety checks: Items removed: yes. Door open/sign placed on door: yes. Family/friend es1 present: no. Sitter present: Yes. 12:45 Safety checks: Items removed: yes. Door open/sign placed on door: yes. Family/friend es1 present: no. Sitter present: Yes. 13:00 Safety checks: Items removed: yes. Door open/sign placed on door: yes. Family/friend es1 present: no. Sitter present: Yes. 13:15 Safety checks: Items removed: yes. Door open/sign placed on door: yes. Family/friend es1 present: no. Sitter present: Yes. 13:30 Safety checks: Items removed: yes. Door open/sign placed on door: yes. Family/friend es1 present: no. Sitter present: Yes. 13:45 Safety checks: Items removed: yes. Door open/sign placed on door: yes. Family/friend es1 present: no. Sitter present: Yes. 14:00 Safety checks: Items removed: yes. Door open/sign placed on door: yes. Family/friend es1 present: no. Sitter present: Yes. 14:15 Safety checks: Items removed: yes. Door open/sign placed on door: yes. Family/friend es1 present: no. Sitter present: Yes. 14:30 Safety checks: Items removed: yes. Door open/sign placed on door: yes. Family/friend es1 present: no. Sitter present: Yes. 14:45 Safety checks: Items removed: yes. Door open/sign placed on door: yes. Family/friend es1 present: no. Sitter present: Yes. 15:00 Safety checks: Items removed: yes. Door open/sign placed on door: yes. Family/friend es1 present: no. Sitter present: Yes. 15:15 Safety checks: Items removed: yes. Door open/sign placed on door: yes. Family/friend es1 present: no. Sitter present: Yes. 15:30 Safety checks: Items removed: yes. Door open/sign placed on door: yes. Family/friend es1 present: no. Sitter present: Yes. 15:45 Safety checks: Items removed: yes. Door open/sign placed on door: yes. Family/friend es1 present: no. Sitter present: Yes. 16:00 Safety checks: Items removed: yes. Door open/sign placed on door: yes. Family/friend es1 present: no. Sitter present: Yes. 16:15 Safety checks: Items removed: yes. Door open/sign placed on door: yes. Family/friend es1 present: no. Sitter present: Yes. 16:30 Safety checks: Items removed: yes. Door open/sign placed on door: yes. Family/friend es1 present: no. Sitter present: Yes. 16:45 Safety checks: Items removed: yes. Door open/sign placed on door: yes. Family/friend es1 present: no. Sitter present: Yes. 17:00 Safety checks: Items removed: yes. Door open/sign placed on door: yes. Family/friend es1 present: no. Sitter present: Yes. 17:15 Safety checks: Items removed: yes. Door open/sign placed on door: yes. Family/friend es1 present: no. Sitter present: Yes. 17:30 Safety checks: Items removed: yes. Door open/sign placed on door: yes. Family/friend es1 present: no. Sitter present: Yes. 17:45 Safety checks: Items removed: yes. Door open/sign placed on door: yes. Family/friend es1 present: no. Sitter present: Yes. 18:00 Safety checks: Items removed: yes. Door open/sign placed on door: yes. Family/friend es1 present: no. Sitter present: Yes. 18:15 Safety checks: Items removed: yes. Door open/sign placed on door: yes. Family/friend es1 present: no. Sitter present: Yes. 18:30 Safety checks: Items removed: yes. Door open/sign placed on door: yes. Family/friend es1 present: no. Sitter present: Yes. 18:45 Safety checks: Items removed: yes. Door open/sign placed on door: yes. Family/friend es1 present: no. Sitter present: Yes. 19:00 Safety checks: Items removed: yes. Door open/sign placed on door: yes. Family/friend es1 present: no. Sitter present: Yes. 19:15 Safety checks: Items removed: yes. Door open/sign placed on door: yes. Family/friend aa8 present: no. Sitter present: Yes. 19:30 Safety checks: Items removed: yes. Door open/sign placed on door: yes. Family/friend aa8 present: no. Sitter present: Yes. 19:45 Safety checks: Items removed: yes. Door open/sign placed on door: yes. Family/friend aa8 present: no. Sitter present: Yes. 20:00 Safety checks: Items removed: yes. Door open/sign placed on door: yes. Family/friend aa8 present: no. Sitter present: Yes. 20:15 Safety checks: Items removed: yes. Door open/sign placed on door: yes. Family/friend aa8 present: no. Sitter present: Yes. 20:30 Safety checks: Items removed: yes. Door open/sign placed on door: yes. Family/friend aa8 present: no. Sitter present: Yes. 20:45 Safety checks: Items removed: yes. Door open/sign placed on door: yes. Family/friend aa8 present: no. Sitter present: Yes. 21:00 Safety checks: Items removed: yes. Door open/sign placed on door: yes. Family/friend aa8 present: no. Sitter present: Yes. 21:15 Safety checks: Items removed: yes. Door open/sign placed on door: yes. Family/friend aa8 present: no. Sitter present: Yes. 21:30 Safety checks: Items removed: yes. Door open/sign placed on door: yes. Family/friend aa8 present: no. Sitter present: Yes. 21:45 Safety checks: Items removed: yes. Door open/sign placed on door: yes. Family/friend aa8 present: no. Sitter present: Yes. 22:00 Safety checks: Items removed: yes. Door open/sign placed on door: yes. Family/friend aa8 present: no. Sitter present: Yes. 22:15 Safety checks: Items removed: yes. Door open/sign placed on door: yes. Family/friend aa8 present: no. Sitter present: Yes. 22:30 Safety checks: Items removed: yes. Door open/sign placed on door: yes. Family/friend aa8 present: yes. Sitter present: Yes. 22:40 Safety checks: Items removed: yes. Door open/sign placed on door: yes. Family/friend aa8 present: no. Sitter present: Yes. 22:45 Safety checks: Items removed: yes. Door open/sign placed on door: yes. Family/friend aa8 present: no. Sitter present: Yes. 23:00 Safety checks: Items removed: yes. Door open/sign placed on door: yes. Family/friend aa8 present: yes. Sitter present: Yes. 23:15 Safety checks: Items removed: yes. Door open/sign placed on door: yes. Family/friend aa8 present: yes. no. Sitter present: Yes. 23:30 Safety checks: Items removed: yes. Door open/sign placed on door: yes. Family/friend aa8 present: no. Sitter present: Yes. 23:45 Safety checks: Items removed: yes. Door open/sign placed on door: yes. Family/friend aa8 present: no. Sitter present: Yes. 04/11 00:00 Safety checks: Items removed: yes. Door open/sign placed on door: yes. Family/friend aa8 present: no. Sitter present: Yes. 00:15 Safety checks: Items removed: yes. Door open/sign placed on door: yes. Family/friend aa8 present: no. Sitter present: Yes. 00:30 Safety checks: Items removed: yes. Door open/sign placed on door: yes. Family/friend aa8 present: no. Sitter present: Yes. 00:45 Safety checks: Items removed: yes. Door open/sign placed on door: yes. Family/friend aa8 present: no. Sitter present: Yes. 01:00 Safety checks: Items removed: yes. Door open/sign placed on door: yes. Family/friend aa8 present: no. Sitter present: Yes. 01:15 Safety checks: Items removed: yes. Door open/sign placed on door: yes. Family/friend aa8 present: no. Sitter present: Yes. 01:30 Safety checks: Items removed: yes. Door open/sign placed on door: yes. Family/friend aa8 present: no. Sitter present: Yes. 01:45 Safety checks: Items removed: yes. Door open/sign placed on door: yes. Family/friend aa8 present: no. Sitter present: Yes. 02:00 Safety checks: Items removed: yes. Door open/sign placed on door: yes. Family/friend aa8 present: no. Sitter present: Yes. 02:15 Safety checks: Items removed: yes. Door open/sign placed on door: yes. Family/friend aa8 present: no. Sitter present: Yes. 02:30 Safety checks: Items removed: yes. Door open/sign placed on door: yes. Family/friend aa8 present: no. Sitter present: Yes. 02:45 Safety checks: Items removed: yes. Door open/sign placed on door: yes. Family/friend aa8 present: no. Sitter present: Yes. 03:05 Safety checks: Items removed: yes. Door open/sign placed on door: yes. Family/friend aa8 present: no. Sitter present: Yes. 03:15 Safety checks: Items removed: yes. Door open/sign placed on door: yes. Family/friend aa8 present: no. Sitter present: Yes. 03:30 Safety checks: Items removed: yes. Door open/sign placed on door: yes. Family/friend aa8 present: no. Sitter present: Yes. 03:45 Safety checks: Items removed: yes. Door open/sign placed on door: yes. Family/friend aa8 present: no. Sitter present: Yes. 04:00 Safety checks: Items removed: yes. Door open/sign placed on door: yes. Family/friend aa8 present: no. Sitter present: Yes. 04:15 Safety checks: Items removed: yes. Door open/sign placed on door: yes. Family/friend aa8 present: no. Sitter present: Yes. 04:30 Safety checks: Items removed: yes. Door open/sign placed on door: yes. Family/friend aa8 present: no. Sitter present: Yes. 04:45 Safety checks: Items removed: yes. Door open/sign placed on door: yes. Family/friend aa8 present: no. Sitter present: Yes. 05:00 Safety checks: Items removed: yes. Door open/sign placed on door: yes. Family/friend aa8 present: no. Sitter present: Yes. 05:15 Safety checks: Items removed: yes. Door open/sign placed on door: yes. Family/friend aa8 present: no. Sitter present: Yes. 05:30 Safety checks: Items removed: yes. Door open/sign placed on door: yes. Family/friend aa8 present: no. Sitter present: Yes. 05:45 Safety checks: Items removed: yes. Door open/sign placed on door: yes. Family/friend aa8 present: no. Sitter present: Yes. 06:00 Safety checks: Items removed: yes. Door open/sign placed on door: yes. Family/friend aa8 present: no. Sitter present: Yes. 06:15 Safety checks: Items removed: yes. Door open/sign placed on door: yes. Family/friend aa8 present: no. Sitter present: Yes. 06:30 Safety checks: Items removed: yes. Door open/sign placed on door: yes. Family/friend aa8 present: no. Sitter present: Yes. 06:45 Safety checks: Items removed: yes. Door open/sign placed on door: yes. Family/friend aa8 present: no. Sitter present: Yes. 07:00 Report given to BARB Pulliam. cc3 07:00 Safety checks: Items removed: yes. Door open/sign placed on door: yes. Family/friend aa8 present: no. Sitter present: Yes. 07:14 Safety checks: Items removed: yes. Door open/sign placed on door: yes. Family/friend to present: no. Sitter present: Yes. 07:29 Safety checks: Items removed: yes. Door open/sign placed on door: yes. Family/friend to present: no. Sitter present: Yes. 07:44 Safety checks: Items removed: yes. Door open/sign placed on door: yes. Family/friend to present: no. Sitter present: Yes. 08:03 Safety checks: Items removed: yes. Door open/sign placed on door: yes. Family/friend to present: no. Sitter present: Yes. 08:16 Safety checks: Items removed: yes. Door open/sign placed on door: yes. Family/friend to present: no. Sitter present: Yes. 08:31 Safety checks: Items removed: yes. Door open/sign placed on door: yes. Family/friend to present: no. Sitter present: Yes. 08:46 Safety checks: Items removed: yes. Door open/sign placed on door: yes. Family/friend to present: no. Sitter present: Yes. 08:59 Safety checks: Items removed:. Safety checks: Items removed: yes. Door open/sign placed to on door: yes. Family/friend present: no. Sitter present: Yes. 09:13 Safety checks: Items removed: yes. Door open/sign placed on door: yes. Family/friend to present: no. Sitter present: Yes. 09:30 Safety checks: Items removed: yes. Door open/sign placed on door: yes. Family/friend to present: no. Sitter present: Yes. 09:45 Safety checks: Items removed: yes. Door open/sign placed on door: yes. Family/friend to present: no. Sitter present: Yes. 09:51 Primary Nurse role handed off by Joss Frye RN jl7 09:51 Shasha Guan RN is Primary Nurse. jl7 09:59 Safety checks: Items removed: yes. Door open/sign placed on door: yes. Family/friend to present: no. Sitter present: Yes. 10:14 Safety checks: Items removed: yes. Door open/sign placed on door: yes. Family/friend to present: no. Sitter present: Yes. 10:30 Safety checks: Items removed: yes. Door open/sign placed on door: yes. Family/friend to present: no. Sitter present: Yes. 10:45 Safety checks: Items removed: yes. Door open/sign placed on door: yes. Family/friend to present: no. Sitter present: Yes. 11:00 Safety checks: Items removed: yes. Door open/sign placed on door: yes. Family/friend to present: no. Sitter present: Yes. 11:15 Safety checks: Items removed: yes. Door open/sign placed on door: yes. Family/friend to present: no. Sitter present: Yes. 11:30 Safety checks: Items removed: yes. Door open/sign placed on door: yes. Family/friend to present: no. Sitter present: Yes. 11:46 Safety checks: Items removed: yes. Door open/sign placed on door: yes. Family/friend to present: no. Sitter present: Yes. 12:19 Safety checks: Items removed: yes. Door open/sign placed on door: yes. Family/friend to present: no. Sitter present: Yes. 12:33 Safety checks: Items removed: yes. Door open/sign placed on door: yes. Family/friend to present: no. Sitter present: Yes. 12:46 Safety checks: Items removed: yes. Door open/sign placed on door: yes. Family/friend to present: no. Sitter present: Yes. 13:01 Safety checks: Items removed: yes. Door open/sign placed on door: yes. Family/friend to present: no. Sitter present: Yes. 13:14 Safety checks: Items removed: yes. Door open/sign placed on door: yes. Family/friend to present: no. Sitter present: Yes. 13:30 Safety checks: Items removed: yes. Door open/sign placed on door: yes. Family/friend to present: no. Sitter present: Yes. 13:51 IV discontinued, intact, bleeding controlled, No redness/swelling at site. Pressure jl7 dressing applied. Administered Medications: 04/10 18:44 Drug: Tylenol 1000 mg Route: PO; mg2 19:21 Follow up: Response: No adverse reaction; Pain is decreased cc3 04/11 09:50 Drug: Valium 5 mg Route: PO; jl7 11:19 Follow up: Response: No adverse reaction; Marked relief of symptoms jl7 Outcome: 12:27 Discharge ordered by MD. rn 13:51 Discharged to home ambulatory. jl7 13:51 Condition: stable 13:51 Discharge instructions given to patient, Instructed on discharge instructions, follow up and referral plans. medication usage, Demonstrated understanding of instructions, follow-up care, medications, Prescriptions given X 1. 13:53 Patient left the ED. jl7 Signatures: Joss Frye RN RN Emilio Barajas MD MD rn Attema, Lee, RN RN la1 Ely Maharaj RN RN hb Leal, Jahala, RN RN jl7 Felicita Mims Phillip, MD MD ps1 Gardose, Michele, RN RN mg2 Moise Young jp3 Sultana Montano Donna dg1 Cordel, Charlene cc3 Florecita Hair to Corrections: (The following items were deleted from the chart) 04/09 18:01 17:40 Patient has correct armband on for positive identification. la1 jp3 04/10 02:47 04/09 19:13 Reassessment: Patient appears in no apparent distress at this time. Patient cc3 and/or family updated on plan of care and expected duration. Pain level reassessed. Patient is alert, oriented x 3, equal unlabored respirations, skin warm/dry/pink. Received this male patient from morning shift BARB Wong as a case of suicidal ideation. With IV cannula gauge 22 at the right ACV saline locked. patient resting on bed with eyes closed. Patient denies pain at this time. cc3 04/10 07:54 07:51 Safety checks: Items removed: yes. es1 es1 07:54 07:45 Safety checks: Door open/sign placed on door: no. Family/friend present: no. es1 Sitter present: Yes. es1 08:16 08:14 Safety checks: Items removed: yes. Door open/sign placed on door: no. es1 Family/friend present: no. Sitter present: Yes. es1 09:25 09:13 Safety checks: Items removed: yes. Door open/sign placed on door: no. es1 Family/friend present: no. Sitter present: Yes. es1 13:30 13:29 Safety checks: Items removed: yes. Door open/sign placed on door: yes. es1 Family/friend present: no. Sitter present: Yes. es1 14:46 14:42 Safety checks: Items removed: yes. Door open/sign placed on door: yes. es1 Family/friend present: no. Sitter present: Yes. es1 15:00 14:59 Safety checks: Items removed: yes. Door open/sign placed on door: yes. es1 Family/friend present: no. Sitter present: Yes. es1 19:52 19:16 Reassessment: Patient appears in no apparent distress at this time. Patient cc3 and/or family updated on plan of care and expected duration. Pain level reassessed. Patient is alert, oriented x 3, equal unlabored respirations, skin warm/dry/pink. Received this male patient from morning shift RN Elliot, not yet seen by [facility] today. With IV cannula gauge 22 at the right ACV saline locked. sitter present. Patient denies pain at this time. cc3
== END 2019-04-11 13:53 | disposition home or self-care (01) ==
LOC: ER 17:08
DX: F32.9 Major depressive disorder, single episode, unspecified (principal); F20.9 Schizophrenia, unspecified
CPT/HCPCS: 36415; 80048; 80076; 80307; 80320; 80329; 81003; 85025; 85610; 85730; 93005; 99285

== ENCOUNTER 2019-08-20 09:16 | Emergency (ER) | payer SELFPAY ==
--- OUTSIDE RECORDS SUMMARY | 2019-08-20 09:18 | XMS REPORT ---
:1980 [facility] Address [address] [place] [address] Care Team Providers Name Role Phone Unavailable Unavailable Unavailable Problems This patient has no known problems. Allergies, Adverse Reactions, Alerts This patient has no known allergies or adverse reactions. Medications This patient has no known medications. Encounters Start End Encounter Admission Attending Care Care Encounter Date/Time Date/Time Type Type Clinicians Facility Department ID 2019-04-16 2019-04-16 Emergency E [id number] 20:02:00 20:02:00 Results Test Description Test Time Test Comments Text Results Atomic Results Result Comments Urine Drug Screen 2019-04-16 12:23:21 Test Item Value Reference Range Comments Amphetamine Screen Ur (test Negative Negative code=Amphetamine Screen Ur) Barbiturate Screen Ur (test Negative Negative code=Barbiturate Screen Ur) Benzodiazepines Ur (test POSITIVE Negative code=Benzodiazepines Ur) Cocaine Screen Ur (test Negative Negative code=Cocaine Screen Ur) U Methadone Scr (test code=U Negative Negative Methadone Scr) Opiate Screen Ur (test code=Opiate Negative Negative Screen Ur) U PCP Scrn (test code=U PCP Scrn) Negative Negative Cannabinoid Screen Ur (test POSITIVE Negative code=Cannabinoid Screen Ur) U TCA (test code=U TCA) Negative Negative The results of all drug screen tests are only preliminary. Clinical consideration and professional judgment should be applied to any drug of abuse test result, particularly when preliminary positive results are obtained. Please order a separate confirmatory test if desired. Alcohol [id number] 12:11:09 Test Item Value Reference Range Comments Ethanol Level (test <0.00 g/dL 0.00-0.01 Intoxicated 0.080 g/dL or more code=Ethanol Level) Ethanol Inst (test <0 code=Ethanol Inst) Comprehensive Metabolic [id number] 11:17:58 Test Item Value Reference Range Comments Sodium Level (test code=Sodium Level) 141.0 mmol/L 135.0-145.0 Potassium Level (test code=Potassium Level) 4.2 mmol/L 3.5-5.1 Chloride Level (test code=Chloride Level) 104 mmol/L 98-105 CO2 (test code=CO2) 28 mmol/L 22-29 Anion Gap (test code=Anion Gap) 9 mmol/L 7-16 BUN (test code=BUN) 11.40 mg/dL 6.00-20.00 Creatinine Level (test code=Creatinine Level) 0.90 mg/dL 0.70-1.20 BUN/Creat Ratio (test code=BUN/Creat Ratio) 13 Glucose Level (test code=Glucose Level) 93 mg/dL 70-115 Calcium Level (test code=Calcium Level) 9.6 mg/dL 8.3-10.5 Alk Phos (test code=Alk Phos) 50 U/L 40-129 Bilirubin Total (test code=Bilirubin Total) <0.1 mg/dL 0.1-0.9 Albumin Level (test code=Albumin Level) 4.4 g/dL 3.5-5.2 Protein Total (test code=Protein Total) 6.7 g/dL 6.4-8.3 ALT (test code=ALT) 9 U/L 1-41 AST (test code=AST) 14 U/L 1-40 Globulin (test code=Globulin) 2.3 g/dL 2.9-3.1 A/G Ratio (test code=A/G Ratio) 1.9 ratio Comprehensive Metabolic [id number] 11:17:58 Test Item Value Reference Range Comments Sodium Level (test 141.0 mmol/L 135.0-145.0 code=Sodium Level) Potassium Level (test 4.2 mmol/L 3.5-5.1 code=Potassium Level) Chloride Level (test 104 mmol/L 98-105 code=Chloride Level) CO2 (test code=CO2) 28 mmol/L 22-29 Anion Gap (test 9 mmol/L 7-16 code=Anion Gap) BUN (test code=BUN) 11.40 mg/dL 6.00-20.00 Creatinine Level (test 0.90 mg/dL 0.70-1.20 code=Creatinine Level) BUN/Creat Ratio (test 13 code=BUN/Creat Ratio) Glucose Level (test 93 mg/dL 70-115 code=Glucose Level) Calcium Level (test 9.6 mg/dL 8.3-10.5 code=Calcium Level) Alk Phos (test code=Alk 50 U/L 40-129 Phos) Bilirubin Total (test <0.1 mg/dL 0.1-0.9 code=Bilirubin Total) Albumin Level (test 4.4 g/dL 3.5-5.2 code=Albumin Level) Protein Total (test 6.7 g/dL 6.4-8.3 code=Protein Total) ALT (test code=ALT) 9 U/L 1-41 AST (test code=AST) 14 U/L 1-40 Globulin (test 2.3 g/dL 2.9-3.1 code=Globulin) A/G Ratio (test code=A/G 1.9 ratio Ratio) eGFR AA (test code=eGFR >60 mL/min/1.73 m2 eGFR (estimated AA) Glomerular Filtration Rate) is an estimated value, calculated from the patient's serum creatinine using the MDRD equation. It is NOT the patient's actual GFR. The eGFR provides a more clinically useful measure of kidney disease than serum creatinine alone.This calculation takes sex and race into account, if the information is provided. If the race is not provided, and the patient is -Afghan, multiply by 1.212. If sex is not provided, and the patient is female, multiply by 0.742. Results for patients <18 years of age have not been validated by the MDRD study and should be interpreted with caution. eGFR Result Interpretation:eGFR > or=60 is in the Normal RangeeGFR < 60 may mean kidney diseaseeGFR < 15 may mean kidney failure Ranges recommended by the National Kidney Foundation, http://nkdep.nih.gov Comprehensive Metabolic [id number] 11:17:58 Test Item Value Reference Range Comments Sodium Level (test 141.0 mmol/L 135.0-145.0 code=Sodium Level) Potassium Level (test 4.2 mmol/L 3.5-5.1 code=Potassium Level) Chloride Level (test 104 mmol/L 98-105 code=Chloride Level) CO2 (test code=CO2) 28 mmol/L 22-29 Anion Gap (test 9 mmol/L 7-16 code=Anion Gap) BUN (test code=BUN) 11.40 mg/dL 6.00-20.00 Creatinine Level (test 0.90 mg/dL 0.70-1.20 code=Creatinine Level) BUN/Creat Ratio (test 13 code=BUN/Creat Ratio) Glucose Level (test 93 mg/dL 70-115 code=Glucose Level) Calcium Level (test 9.6 mg/dL 8.3-10.5 code=Calcium Level) Alk Phos (test code=Alk 50 U/L 40-129 Phos) Bilirubin Total (test <0.1 mg/dL 0.1-0.9 code=Bilirubin Total) Albumin Level (test 4.4 g/dL 3.5-5.2 code=Albumin Level) Protein Total (test 6.7 g/dL 6.4-8.3 code=Protein Total) ALT (test code=ALT) 9 U/L 1-41 AST (test code=AST) 14 U/L 1-40 Globulin (test 2.3 g/dL 2.9-3.1 code=Globulin) A/G Ratio (test code=A/G 1.9 ratio Ratio) eGFR AA (test code=eGFR >60 mL/min/1.73 m2 eGFR (estimated AA) Glomerular Filtration Rate) is an estimated value, calculated from the patient's serum creatinine using the MDRD equation. It is NOT the patient's actual GFR. The eGFR provides a more clinically useful measure of kidney disease than serum creatinine alone.This calculation takes sex and race into account, if the information is provided. If the race is not provided, and the patient is -Afghan, multiply by 1.212. If sex is not provided, and the patient is female, multiply by 0.742. Results for patients <18 years of age have not been validated by the MDRD study and should be interpreted with caution. eGFR Result Interpretation:eGFR > or=60 is in the Normal RangeeGFR < 60 may mean kidney diseaseeGFR < 15 may mean kidney failure Ranges recommended by the National Kidney Foundation, http://nkdep.nih.gov eGFR Non-AA (test >60.00 mL/min/1.73 eGFR (estimated code=eGFR Non-AA) m2 Glomerular Filtration Rate) is an estimated value, calculated from the patient's serum creatinine using the MDRD equation. It is NOT the patient's actual GFR. The eGFR provides a more clinically useful measure of kidney disease than serum creatinine alone.This calculation takes sex and race into account, if the information is provided. If the race is not provided, and the patient is -Afghan, multiply by 1.212. If sex is not provided, and the patient is female, multiply by 0.742. Results for patients <18 years of age have not been validated by the MDRD study and should be interpreted with caution. eGFR Result Interpretation:eGFR > or=60 is in the Normal RangeeGFR < 60 may mean kidney diseaseeGFR < 15 may mean kidney failure Ranges recommended by the National Kidney Foundation, http://nkdep.nih.gov Automated [id number] 10:55:53 Test Item Value Reference Range Comments Neutro Auto (test code=Neutro Auto) 68.8 % 36.0-70.0 Lymph Auto (test code=Lymph Auto) 24.4 % 12.0-44.0 [place] Auto (test code=[place] Auto) 5.0 % 0.0-11.0 Eos, Auto (test code=Eos, Auto) 1.1 % 0.0-7.0 Basophil Auto (test code=Basophil Auto) 0.4 % 0.0-2.0 Neutro Absolute (test code=Neutro Absolute) 10.5 x10 1.6-7.4 Lymph Absolute (test code=Lymph Absolute) 3.71 x10 .50-4.60 [place] Absolute (test code=[place] Absolute) .76 x10 .00-1.20 Eos Absolute (test code=Eos Absolute) 0.16 x10 0.00-0.74 Baso Absolute (test code=Baso Absolute) 0.06 x10 0.00-0.21 IG [id number] 10:55:53 Test Item Value Reference Range Comments IG (test code=IG) 0.3 % 0.0-5.0 IG Abs (test code=IG Abs) 0 x10 Complete Blood Count with [id number] 10:55:52 Test Item Value Reference Range Comments WBC (test code=WBC) 15.2 x10 4.4-10.5 RBC (test code=RBC) 4.31 x10 4.10-5.70 Hgb (test code=Hgb) 13.9 g/dL 13.4-17.4 Hct (test code=Hct) 40.0 % 38.7-52.0 MCV (test code=MCV) 92.80 fL 80.00-100.00 MCHC (test code=MCHC) 34.80 g/dL 32.00-37.50 MCH (test code=MCH) 32.3 pg 27.0-32.5 RDW CV (test code=RDW CV) 12.6 % 11.5-14.5 Platelets (test 271.0 x10 140.0-440.0 code=Platelets) MPV (test code=MPV) 10.8 fL Slide Review (test code=Slide Auto Auto Result created by Review) [id number] nRBC (test code=nRBC) 0 NRBC Abs (test code=NRBC Abs) 0.00 x10 IPF (test code=IPF) 0 %
[2019-08-20 10:01] LABS: Absolute Lymphocytes (CBC) 2.4 K/uL (0.7-4.9); Basophils % 0.7 % (0-1.3); Hematocrit 52.1 % (39.6-49.0); Lymphocytes % 25.3 % (15.3-44.8); MPV 8.7 fL (7.6-11.3); RBC Red Blood Cell Count 5.34 M/uL (4.33-5.43)
[2019-08-20 10:07] LABS: Protime INR 0.9
[2019-08-20 10:15] LABS: Barbiturates NEGATIVE (NEGATIVE); Benzodiazepines NEGATIVE (NEGATIVE); Cocaine NEGATIVE (NEGATIVE); METHAMPHETAM NEGATIVE (NEGATIVE); Methadone NEGATIVE (NEGATIVE); Opiates NEGATIVE (NEGATIVE); Phencyclidine NEGATIVE (NEGATIVE); THC Cannibis NEGATIVE (NEGATIVE)
--- NOTE | 2019-08-20 10:20 | EKG ---
Test Date: 2019-08-20 Test Time: 10:02:37 Measurer: SHAVON MEASUREMENT RESULTS: Intervals: Rate: 96 MD: 130 QRSD: 80 QT: 344 QTc: 434 [place]: P: 57 MD: 130 QRS: 77 T: 58 INTERPRETIVE STATEMENTS: Normal sinus rhythm Normal ECG Compared to ECG 04/09/2019 17:45:32 No significant changes Electronically Signed On 08-20-19 10:19:46 FEEDER SWITCHBOARD OPERATOR by Warren Hernández
--- NOTE | 2019-08-20 10:20 | RAD REPORT ---
EXAM DESCRIPTION: CT - Head Brain Wo Cont - 08/20/2019 9:55 am CLINICAL HISTORY: Transient alteration of awareness, seizure COMPARISON: None. TECHNIQUE: Axial 5 mm thick images of the head were obtained without IV contrast. All CT scans are performed using dose optimization technique as appropriate and may include automated exposure control or mA/KV adjustment according to patient size. FINDINGS: No intracranial hemorrhage, mass, edema or shift of mid-line structures. No acute infarcti on changes seen. No abnormal extra-axial fluid collections. Ventricles are normal. Mastoid air cells and visualized portions of the paranasal sinuses are clear. No acute bony findings. Asymmetry is created by head tilt. IMPRESSION: Negative non-contrast CT head examination.
[2019-08-20 10:24] LABS: ALT/SGPT 23 U/L (12-78); AST/SGOT 20 U/L (15-37); Albumin 3.9 g/dL (3.4-5.0); Alkaline Phosphatase 70 U/L (45-117); BUN Blood Urea Nitrogen 8 mg/dL (7-18); Bicarbonate 29 mmol/L (21-32); Bilirubin Direct 0.2 mg/dL (0-0.2); Bilirubin Total 0.5 mg/dL (0.2-1.0); Glucose Level 75 mg/dL (74-106); Potassium 4.2 mmol/L (3.5-5.1); Protein, Total 7.8 g/dL (6.4-8.2); Sodium Level 141 mmol/L (136-145)
[2019-08-20 10:47] LABS: Urine Blood NEGATIVE (NEG); Urine Glucose NEGATIVE (NEG); Urine Protein NEGATIVE (NEG); Urine Specific Gravity <1.005 (1.005-1.030); Urine pH 5.5 (5.0-7.0)
[2019-08-20] MEDS ORDERED: NA CHLORIDE 0.9% 1,000 ML ONE (10:59)
[2019-08-20] MEDS ORDERED: DIAZEPAM 5 MG TABLET ONE (14:58)
--- NOTE | 2019-08-20 15:17 | ER ---
Nurse's Notes [facility] Name: Eliseo Green Age: 38 yrs Sex: Male : 1980 Arrival Date: 08/20/2019 Time: 09:22 Bed 15 Private MD: Diagnosis: Homicidal and suicidal ideations;Delusional disorders Presentation: 08/20 09:23 Presenting complaint: EMS states: Pt was going through withdrawals 2 or 3 days ago, jl7 reported his neighbor had him go over to snort some Percocet, pt reported his stomach started cramping, he went blind at some point and had a seizure and bit his tongue. Pt reports "I think he put something in it to make me constipated because I couldn't shit for a couple days." Pt reports he feeling a little better now, just feeling nauseous. Transition of care: patient was not received from another setting of care. Onset of symptoms was August 17, 2019. Risk Assessment: Do you want to hurt yourself or someone else? Patient reports desire/thoughts of hurting themselves or someone else. Provider notified. Initial Sepsis Screen: Does the patient meet any 2 criteria? No. Patient's initial sepsis screen is negative. Does the patient have a suspected source of infection? No. Patient's initial sepsis screen is negative. Care prior to arrival: None. 09:23 Method Of Arrival: EMS: [facility] 09:23 Acuity: GURINDER 2 jl Historical: - Allergies: 09:59 No Known Allergies; jl7 - Home Meds: 09:59 None [Active]; jl7 - PMHx: 09:59 Schizophrenia; jl7 - PSHx: 09:59 None; jl7 - Immunization history:: Adult Immunizations not up to date. - Social history:: Smoking status: Patient uses tobacco products, denies chronic smoking, but will smoke occasionally, Patient uses alcohol, on a daily basis. - Ebola Screening: : No symptoms or risks identified at this time. - Family history:: not pertinent. - Hospitalizations: : No recent hospitalization is reported. Screenin:50 Abuse screen: Denies threats or abuse. Denies injuries from another. Nutritional jl7 screening: No deficits noted. Tuberculosis screening: No symptoms or risk factors identified. Fall Risk IV access (20 points). Total Lopez Fall Scale indicates No Risk (0-24 pts). Assessment: 09:25 General: Appears in no apparent distress. uncomfortable, slender, unkempt, Behavior is jl7 cooperative, agitated, anxious, restless. Pain: Denies pain. Neuro: Level of Consciousness is awake, alert, obeys commands, Oriented to person, place, time, Moves all extremities. Full function Gait is steady, Speech is normal, Facial symmetry appears normal, Pupils are sluggish, dilated. Cardiovascular: Heart tones present Patient's skin is warm and dry. Respiratory: Airway is patent Respiratory effort is even, unlabored, Respiratory pattern is regular, symmetrical, Breath sounds are clear bilaterally. GI: Reports nausea. : No signs and/or symptoms were reported regarding the genitourinary system. EENT: No signs and/or symptoms were reported regarding the EENT system. Derm: Skin is pink, warm \\T\\ dry. Musculoskeletal: No signs and/or symptoms reported regarding the musculoskeletal system. 10:30 Reassessment: Patient appears in no apparent distress at this time. No changes from jl7 previously documented assessment. Patient and/or family updated on plan of care and expected duration. Pain level reassessed. Patient is alert, oriented x 3, equal unlabored respirations, skin warm/dry/pink. 11:30 Reassessment: Pt laying in bed with eyes closed, respirations even and unlabored, no jl7 signs of distress noted at this time. 12:30 Reassessment: Patient appears in no apparent distress at this time. No changes from jl7 previously documented assessment. Patient and/or family updated on plan of care and expected duration. Pain level reassessed. Patient is alert, oriented x 3, equal unlabored respirations, skin warm/dry/pink. Patient denies pain at this time. 13:30 Reassessment: Patient appears in no apparent distress at this time. No changes from jl7 previously documented assessment. Patient and/or family updated on plan of care and expected duration. Pain level reassessed. Patient is alert, oriented x 3, equal unlabored respirations, skin warm/dry/pink. 14:17 Reassessment: [facility] at bedside. 7 19:45 Reassessment: Patient appears in no apparent distress at this time. Patient and/or jb4 family updated on plan of care and expected duration. Pain level reassessed. Patient is alert, oriented x 3, equal unlabored respirations, skin warm/dry/pink. Dr. Deleon to the bedside to discuss plan of care with patient. PT continues to report suicidal and homicidal ideations. 21:45 Reassessment: Patient appears in no apparent distress at this time. Patient and/or jb4 family updated on plan of care and expected duration. Pain level reassessed. PT is resting in bed with eyes closed respirations are even and unlabored with no s/s of distress noted. 23:45 Reassessment: Patient appears in no apparent distress at this time. No changes from jb4 previously documented assessment. Patient and/or family updated on plan of care and expected duration. Pain level reassessed. 08/21 00:56 Reassessment: Patient appears in no apparent distress at this time. Patient and/or jb4 family updated on plan of care and expected duration. Pain level reassessed. PT is resting in bed with eyes closed, respirations are even and unlabored, no s/s of distress or pain noted. 03:00 Reassessment: Patient appears in no apparent distress at this time. No changes from jb4 previously documented assessment. Patient and/or family updated on plan of care and expected duration. Pain level reassessed. 06:24 Reassessment: Patient appears in no apparent distress at this time. Patient and/or jb4 family updated on plan of care and expected duration. Pain level reassessed. Patient is alert, oriented x 3, equal unlabored respirations, skin warm/dry/pink. 06:56 Reassessment: RECD REPORT FROM ANTHONY DAY. 38YO WM P/W AMS/PSYCH. PT RESTING QUIETLY, bp PSYCH TRANSFER PENDING. NO ACCEPTANCE AT PSYCH FACILITIES AT THIS TIME. NO SI/HI AT THIS TIME. 09:00 Reassessment: PT PROVIDED BREAKFAST TRAY. CALM AND COOPERATIVE, NO SI/HI AT THIS TIME. bp TRANSFER REQUEST REMAINS UNANSWERED. 11:00 Reassessment: PT REQUESTING LUNCH TRAY AND SECOND BREAKFAST TRAY. NO OBJECTIVE FINDINGS bp OF DISTRESS. TRANSFER STILL IN PROCESS. 13:00 Reassessment: PT EATING SECOND LUNCH. NO S/S ACUTE DISTRESS. bp 14:37 Reassessment: PT HAVING "PANIC ATTACK". SPOKE WITH FATHER AND FATHER WILLING TO HOUSE bp PT IF HE IS TRANSPORTED TO HIM. PROVIDER INFORMED, HOUSE SUP CONTACTED FOR TAXI VOUCHER. 14:58 Reassessment: PT D/C HOME VIA TAXI, DENIES SI/HI, DX WITH SUBSTANCE ABUSE. bp Psych: 08/20 09:25 Subjective: Patient's mood is irritable, Delusions are persecutory, Hallucinations are jl7 denied Having thoughts of suicide. Plan for suicide is "Jump off a bridge.". Subjective: Having thoughts of homicide. Denies plan. Homicidal thoughts directed towards "Everyone, society.". Objective: Patient is cooperative, irritable, restless, suspicious, Speech is rambling, rapid, pressured, Affect is blunted. Interventions: Removed personal items and placed in bag. Patient placed in hospital gown. Searched person for dangerous items. Urine collected and sent for urine drug test. Belonging list filled out. Belongings sent with security. Suicide Risk Assessment: Sad Person Scale: Sex of patient: Male: Score 1 point. Age of patient: Score 0 point if patient falls outside of specified age parameters. Depression: Score 0 point if signs of depression are not present. Previous Attempt: Score 0 point if patient has not previously attempted suicide. Substance Abuse: Score 1 point if patient abuses alcohol or drugs. Rational Thinking: Score 1 point if patient is lacking rational thinking. Social Support: Score 1 point if social support is lacking and/or unavailable. Organized Plan: Score 1 point if patient had a plan in place. Relationship: Score 1 point if patient is , , , or for a single male Chronic Sickness: Score 0 point if patient does not have a chronic illness, debilitating, or severe disorder. TOTAL POINTS: If total points are 5-6, proposed clinical action is to strongly consider hospitalization, depending upon confidence in the follow-up arrangement. Implement suicide precautions. Safety Checks: Personal items have been removed. Door is open. No visitors are present at this time. Patient uses 1-5 cans of beer, daily. Last use was 1 hours ago. Patient has a history of DTs. 10:43 Commitment: Patient will be a voluntary commitment. jl7 Vital Signs: 09:59 BP 112 / 85; Pulse 114; Resp 19 S; Temp 98.2(O); Pulse Ox 98% on R/A; Weight 65.77 kg jl7 (R); Height 5 ft. 10 in. (177.80 cm) (R); Pain 6/10; 14:49 BP 126 / 87; Pulse 103; Resp 18; Temp 99.2(TE); Pulse Ox 99% on R/A; Pain 0/10; dh3 18:01 Temp 98.7(O); dh3 23:07 BP 107 / 76; Pulse 89; Resp 16; Temp 98.6(O); Pulse Ox 100% on R/A; mt 08/21 11:57 BP 118 / 81; Pulse 95; Resp 17; Temp 98.7(O); Pulse Ox 95% on R/A; mh5 08/20 09:59 Body Mass Index 20.81 (65.77 kg, 177.80 cm) jl7 ED Course: 08/20 09:22 Patient arrived in ED. jl7 09:28 Emilio Ahmadi MD is Attending Physician. rn 09:40 Urine collected: clean catch specimen, clear. dh3 09:50 Patient has correct armband on for positive identification. Placed in gown. Bed in low jl7 position. Side rails up X 1. Warm blanket given. 09:50 Initial lab(s) drawn, by me, sent to lab. Inserted saline lock: 20 gauge in right jl7 antecubital area, using aseptic technique. Blood collected. 09:51 Triage completed. jl7 09:55 CT Head Brain wo Cont In Process Unspecified. EDMS 09:56 Shasha Guan, BARB is Primary Nurse. jl7 09:59 Arm band placed on right wrist. jl7 10:06 EKG done, by geotechnical field technician. reviewed by Emilio Ahmadi MD. at1 10:30 Diet: Patient given a regular meal tray. dh3 10:50 Diet: Patient given snack. dh3 11:17 Diet: Patient given a regular meal tray. dh3 12:04 faxed chart to [facility], [facility], [facility], [facility]. 13:03 Repeat lab(s) drawn. by me, sent to lab. dh3 13:15 Diet: Patient given ice chips. Patient given juice. dh3 13:20 faxed chart to [facility], [place]. 13:22 contacted [facility], screener will come to evaluate pt. bd 14:51 faxed [facility] evaluation to [facility]. bd 17:59 talked to Ofe at [facility], pt is on waiting list. bd 19:47 Attending Physician role handed off by Emilio Ahmadi MD pkl 19:47 Antonio Deleon MD is Attending Physician. pkl 21:30 refaxed clinicals to psych facilities. brigette meza called and is reviewing the chart. mt 08/21 01:56 sandwich given. mt 06:59 Primary Nurse role handed off by Shasha Guan RN bp 06:59 Jaden Mayo, BARB is Primary Nurse. bp 08:11 Diet: Patient given a regular meal tray. mh5 09:40 Diet: Patient given snack. 5 10:27 talked to Devyn at [facility], pt is still on waiting list. they are waiting bd on discharges. 10:29 faxed exclusionary to [facility]. bd 11:28 Diet: Patient given a regular meal tray. [facility] 14:39 Attending Physician role handed off by Antonio Deleon MD malachi 14:39 Neo Issa MD is Attending Physician. malachi 14:58 No provider procedures requiring assistance completed. IV discontinued, intact, bp bleeding controlled, No redness/swelling at site. Pressure dressing applied. Administered Medications: 08/20 11:00 Drug: NS 0.9% 1000 ml Route: IV; Rate: 1000 ml; Site: right antecubital; jl7 12:00 Follow up: IV Status: Completed infusion; IV Intake: 1000ml jl7 14:57 Drug: Valium 5 mg Route: PO; jl7 18:37 Follow up: Response: No adverse reaction jl7 18:37 Drug: Ativan 1 mg Route: IVP; Site: right forearm; jl7 19:00 Follow up: Response: No adverse reaction; Marked relief of symptoms jb4 08/21 07:32 Drug: Valium 10 mg Route: PO; bp 14:59 Follow up: Response: No adverse reaction bp Intake: 08/20 12:00 IV: 1000ml; Total: 1000ml. jl7 Outcome: 15:16 ER care complete, transfer ordered by . rn 08/21 14:59 Discharged to home ambulatory. bp Condition: stable Discharge instructions given to patient, Instructed on discharge instructions, follow up and referral plans. Demonstrated understanding of instructions, follow-up care. 15:00 Patient left the ED. bp Signatures: Dispatcher [employer] EDMS Leyla Dan Corey, MD MD cha Lam, Pin, MD MD pkl Nieto, Roman, MD MD rn Gonzales, Amanda, wafer fab operator EKG Tat1 Ravindra Tapia, RN RN jb4 Annmarie Valdes [facility] Shasha Guan RN RN [id number] [facility] Juan M Suzy dh3 Radha Dumont Jaden Mayo RN RN bp Corrections: (The following items were deleted from the chart) 08/20 09:57 09:23 Risk Assessment: Do you want to hurt yourself or someone else? Patient reports no jl7 desire to harm self or others. jl7 09:57 09:23 Acuity: GURINDER 3 jl7 jl7 08/21 06:59 06:56 Reassessment: RECD REPORT FROM ANTHONY DAY. 38YO WM P/W AMS/PSYCH. PT RESTING bp QUIETLY, PSYCH TRANSFER PENDING. NO ACCEPTANCE AT PSYCH FACILITIES AT THIS TIME
--- NOTE | 2019-08-20 15:17 | EDPHYS ---
Physician Documentation [facility] Name: Eliseo Green Age: 38 yrs Sex: Male : 1980 Arrival Date: 08/20/2019 Time: 09:22 Bed 15 Private MD: ED Physician Noe Issa HPI: 08/20 10:35 This 38 yrs old Male presents to ER via EMS with complaints of Poison. rn 10:35 The patient presents to the emergency department with homicidal ideation, paranoia. rn Onset: The symptoms/episode began/occurred at an unknown time. Severity of symptoms: At their worst the symptoms were moderate in the emergency department the symptoms are unchanged. The patient has not experienced similar symptoms in the past. The patient has not recently seen a physician. Reports paranoid, thinks is being poisoned, has thoughts that people around him are talking about him and have sensitive information about him. Snorted drug yesterday with someone he knew, states had abd pain, followed by headache, briefly lost vision, and then doesn't know if had seizure or passed out but bit tongue. Reports has been happening for 3 years, and if continues thinks will kill next person he feels is talking about him. . Historical: - Allergies: 09:59 No Known Allergies; jl7 - Home Meds: 09:59 None [Active]; jl7 - PMHx: 09:59 Schizophrenia; jl7 - PSHx: 09:59 None; jl7 - Immunization history:: Adult Immunizations not up to date. - Social history:: Smoking status: Patient uses tobacco products, denies chronic smoking, but will smoke occasionally, Patient uses alcohol, on a daily basis. - Ebola Screening: : No symptoms or risks identified at this time. - Family history:: not pertinent. - Hospitalizations: : No recent hospitalization is reported. ROS: 10:35 Constitutional: Negative for fever, chills, and weight loss, Eyes: Negative for injury, rn pain, redness, and discharge, ENT: + tongue bite, no active bleeding Neck: Negative for injury, pain, and swelling, Cardiovascular: Negative for chest pain, palpitations, and edema, Respiratory: Negative for shortness of breath, cough, wheezing, and pleuritic chest pain, Abdomen/GI: Negative for abdominal pain, nausea, vomiting, diarrhea, and constipation, MS/Extremity: Negative for injury and deformity, Skin: Negative for injury, rash, and discoloration, Neuro: Negative for headache, weakness, numbness, tingling, and seizure. 10:35 Psych: Positive for anxiety, homicidal ideation. rn Exam: 10:35 Constitutional: This is a well developed, well nourished patient who is awake, alert, rn fast talking and seems frustrated Head/Face: Normocephalic, atraumatic. Eyes: Pupils equal round and reactive to light, extra-ocular motions intact. Lids and lashes normal. Conjunctiva and sclera are non-icteric and not injected. Cornea within normal limits. Periorbital areas with no swelling, redness, or edema. ENT: dry MM Neck: Trachea midline, no thyromegaly or masses palpated, and no cervical lymphadenopathy. Supple, full range of motion without nuchal rigidity, or vertebral point tenderness. No Meningismus. Cardiovascular: tachycardic, regular Respiratory: No increased work of breathing, no retractions or nasal flaring. Abdomen/GI: soft, non-tender Back: No spinal tenderness. No costovertebral tenderness. Full range of motion. Skin: Warm, dry MS/ Extremity: Pulses equal, no cyanosis. Neurovascular intact. Full, normal range of motion. Equal circumference. Neuro: Awake and alert, GCS 15, oriented to person, place, time, and situation. Cranial nerves II-XII grossly intact. Motor strength 5/5 in all extremities. Sensory grossly intact. Cerebellar exam normal. Normal gait. Vital Signs: 09:59 BP 112 / 85; Pulse 114; Resp 19 S; Temp 98.2(O); Pulse Ox 98% on R/A; Weight 65.77 kg jl7 (R); Height 5 ft. 10 in. (177.80 cm) (R); Pain 6/10; 14:49 BP 126 / 87; Pulse 103; Resp 18; Temp 99.2(TE); Pulse Ox 99% on R/A; Pain 0/10; dh3 18:01 Temp 98.7(O); dh3 23:07 BP 107 / 76; Pulse 89; Resp 16; Temp 98.6(O); Pulse Ox 100% on R/A; mt 08/21 11:57 BP 118 / 81; Pulse 95; Resp 17; Temp 98.7(O); Pulse Ox 95% on R/A; mh5 08/20 09:59 Body Mass Index 20.81 (65.77 kg, 177.80 cm) jl7 MDM: 08/20 09:28 Patient medically screened. rn 15:12 Differential diagnosis: homicidal ideation, suicidal ideation. Data reviewed: vital rn signs, nurses notes, lab test result(s), EKG, radiologic studies, CT scan, and as a result, I will admit patient. Counseling: I had a detailed discussion with the patient and/or guardian regarding: the historical points, exam findings, and any diagnostic results supporting the discharge/admit diagnosis, lab results, radiology results, the need to transfer to another facility, [facility] does not immediately have the required specialist. Response to treatment: the patient's symptoms have mildly improved after treatment, and as a result, I will admit patient. ED course: Pt evaluated by [facility], recommend inpatient psychiatric admission, is medically cleared, awaiting for transfer. . 19:47 ED course: Patient resting comfortably. Not in any distress. Awaiting transfer to [facility]. Still having suicidal and homicidal ideations. 08/21 14:39 ED course: not suicidal, not homicidal, want to go stay with his dad. called dad, dad malachi agreed. 08/20 09:38 Order name: Acetaminophen; Complete Time: 10:35 08/20 09:38 Order name: Basic Metabolic Panel; Complete Time: 10:35 08/20 09:38 Order name: CBC with Diff; Complete Time: 10:35 08/20 09:38 Order name: ETOH Level; Complete Time: 10:35 08/20 09:38 Order name: Hepatic Function; Complete Time: 10:35 08/20 09:38 Order name: PT-INR; Complete Time: 10:35 08/20 09:38 Order name: Ptt, Activated; Complete Time: 10:35 08/20 09:38 Order name: Salicylate; Complete Time: 11:29 rn 08/20 09:38 Order name: Urine Drug Screen; Complete Time: 10:35 08/20 09:38 Order name: CT Head Brain wo Cont; Complete Time: 10:35 08/20 10:14 Order name: Urine Dipstick--Ancillary (enter results); Complete Time: 11:29 bd 08/20 12:52 Order name: ETOH Level; Complete Time: 14:34 bd 08/20 09:38 Order name: EKG; Complete Time: 09:39 rn 08/20 09:38 Order name: EKG - Nurse/Tech; Complete Time: 10:01 rn 08/20 09:38 Order name: IV Saline Lock; Complete Time: 10:01 rn 08/20 09:38 Order name: Labs collected and sent; Complete Time: 10: rn 08/20 09:38 Order name: Urine Dipstick-Ancillary (obtain specimen); Complete Time: 10: rn 08/20 10:02 Order name: Diet Finger Food; Complete Time: 10:02 7 08/20 10:52 Order name: Diet Regular; Complete Time: 10:53 3 08/21 06:16 Order name: Diet Regular; Complete Time: 06:16 2 08/21 08:21 Order name: Diet Regular; Complete Time: 08:21 5 08/21 09:37 Order name: Diet Regular; Complete Time: 09:37 5 08/21 10:52 Order name: Diet Regular: please grind meat patient needs soft foods ALSO DOUBLE mh5 PORTIONS; Complete Time: 10:52 Administered Medications: 08/20 11:00 Drug: NS 0.9% 1000 ml Route: IV; Rate: 1000 ml; Site: right antecubital; jl7 12:00 Follow up: IV Status: Completed infusion; IV Intake: 1000ml jl7 14:57 Drug: Valium 5 mg Route: PO; jl7 18:37 Follow up: Response: No adverse reaction jl7 18:37 Drug: Ativan 1 mg Route: IVP; Site: right forearm; jl7 19:00 Follow up: Response: No adverse reaction; Marked relief of symptoms jb4 08/21 07:32 Drug: Valium 10 mg Route: PO; bp 14:59 Follow up: Response: No adverse reaction bp Disposition: 08/20/19 15:16 Transfer ordered to Psych Facility. Diagnosis are Homicidal and suicidal ideations, Delusional disorders. - Reason for transfer: Higher level of care. - Accepting physician is . - Condition is Stable. - Problem is an ongoing problem. - Symptoms have improved. Signatures: Dispatcher [employer] EDNoe Walsh MD MD cha Lam, Pin, MD MD pkl Nieto, Roman, MD MD rn Shasha Guan, RN RN jl7 Jaden Mayo RN RN bp Ravindra Tapia RN jb4 Corrections: (The following items were deleted from the chart) 08/20 15:16 15:16 08/20/2019 15:16 Transfer ordered to Psych Facility. Diagnosis is Homicidal and rn suicidal ideations. Reason for transfer: Higher level of care. Accepting physician is . Condition is Stable. Problem is an ongoing problem. Symptoms have improved. rn 08/21 15:00 08/20 15:16 08/20/2019 15:16 Transfer ordered to Psych Facility. Diagnosis is Homicidal bp and suicidal ideations; Delusional disorders. Reason for transfer: Higher level of care. Accepting physician is . Condition is Stable. Problem is an ongoing problem. Symptoms have improved. rn
[2019-08-20] MEDS ORDERED: LORazepam 2 MG/ML VIAL ONE (18:23)
[2019-08-21] MEDS ORDERED: DIAZEPAM 5 MG TABLET ONE (07:22)
[2019-08-21 15:24] VITALS: BP 118/81; TEMP 98.7; O2SAT 95
== END 2019-08-21 15:00 ==
LOC: ER 09:16
DX: R45.851 Suicidal ideations (principal); F22 Delusional disorders; Z72.0 Tobacco use
CPT/HCPCS: 36415; 70450; 80048; 80076; 80307; 80320; 80329; 81003; 85025; 85610; 85730; 93005; 96361; 96374; 99285; J7030